=== PATIENT | male | born 1935 | race Caucasian/White ===

== ENCOUNTER 2024-05-01 20:28 | Inpatient (IN) ==
--- NOTE | 2024-05-01 20:42 | Emergency Department Note ---
Impression & Plan Aggressive behavior, HUGH (acute kidney injury), Elevated troponin I level ED Provider Note NAME: FAISAL BISHOP AGE: 88 SEX: M : 1935 ARRIVES VIA: Ambulance INFORMANT: Patient, EMS ED PROVIDER(S): John Madrid DO CHIEF COMPLAINT: Aggressive behavior HPI: The patient is an 88-year-old male who presented to the emergency department for an evaluation of aggressive behavior. The patient's been arguing with his significant other over the last several days. There is no reported fever or trauma. The patient was sent to emergency department by the significant other ROS: See above HPI for pertinent positives & negatives. A total of 10 systems reviewed and were otherwise negative. PAST MEDICAL HISTORY: See Below PAST SURGICAL HISTORY: See Below FAMILY HISTORY: See Below SOCIAL HISTORY: See Below HOME MEDICATIONS: See Below ALLERGIES: See Below VITALS: See Below PHYSICAL EXAMINATION: GENERAL: Patient is awake alert in no acute distress patient is resting comfortably and showing no signs of anxiety EYES: The conjunctivae are clear. The pupils are round and reactive. EARS, NOSE, MOUTH AND THROAT: The nose is without any evidence of any deformity. NECK: The neck is nontender and supple. RESPIRATORY: Normal respiratory effort is noted there is no evidence of wheezing rhonchi or rales CARDIOVASCULAR: Regular rate and rhythm noted there no murmurs rubs or gallops normal S1 normal S2. GASTROINTESTINAL: The abdomen is soft. Abdomen is nontender. MUSCULOSKELETAL/EXTREMITIES: There is no evidence of gross deformity full range of motion is noted in the hips and shoulders. SKIN: There is no obvious evidence of any rash. There are no petechiae, pallor or cyanosis noted. NEUROLOGIC: Patient is awake and oriented to person only. Strength was symmetric. There is no facial droop. Speech was clear. MEDICAL DECISION MAKING: The patient is an 88-year-old male who presented to the emergency department for an evaluation. The patient has a history of dementia. He has been having problems with aggressive behavior towards his significant other at home. His significant other was unable to manage his behavior this evening and she called 911. The patient had a medical workup in the emergency department. He was found have a slight elevation in his creatinine as well as his troponin. I discussed his condition with the on-call [facility] hospitalist. He may require further inpatient management followed by evaluation by professor of social work for possible placement. Triage Nursing notes reviewed. Prior medical records reviewed Vital Signs: reviewed and remarkable for no significant abnormalities Differential diagnosis: Infection, hypoglycemia, electrolyte abnormalities, overdose, toxicologic, cardiac sources, intracerebral event, neurologic, trauma, as well as other pathologies. ER treatment provided: See below Diagnostics interpreted by me: ECG: EKG was obtained in the emergency department. My interpretation is sinus rhythm at 87 bpm. PACs were noted. Left bundle branch block pattern was noted. No previous tracing was available. Cardiac Monitoring: An order was placed for continuous cardiac monitoring. The monitor shows a rate of 80 bpm with sinus rhythm. Laboratory studies: As stated above and show below. Imaging studies: See below. Radiographic imaging was reviewed by myself Consultation(s): Dr. Tavera who is on for the [facility] hospitalist group was notified about the patient. Past Med/Surg History Problem List (Updated 05/01/24 @ 21:59 by John Madrid DO) Elevated troponin I level (Acute) HUGH (acute kidney injury) (Acute) Aggressive behavior (Acute) Heart failure with reduced ejection fraction Constipation Elevated blood sugar Ambulatory dysfunction Atrial fibrillation Hearing difficulty of both ears Anxiety Macular degeneration Dyslipidemia Hypertension Dementia Skin lesion of cheek Medical History History of prostate cancer History of skin cancer Abdominal aortic aneurysm Surgical History History of prostate surgery Family History Father Alcohol abuse Alzheimer disease Brother Alcohol abuse Heart disease Hypertension Alzheimer disease Sister Anxiety Alzheimer disease Denies family history of Ovarian cancer Prostate cancer Myocardial infarction Breast cancer Colorectal cancer Social History Smoking Status: Never smoker packs per day: 0.5; Second Hand Exposure: No; Do You Dip or Chew Tobacco: No; Hx Alcohol Use: No Hx Substance Use: No Visual Impairment: No Limitations Hearing Ability: Hard of Hearing marital status: Current Living Situation: Spouse current occupational status: retired current occupation: Dentist Diet: regular caffeine: Yes during the past year weight has: remained stable Dental Care, Regularly: Yes Physical Activity Frequency: 5-6 Times per Week Seatbelt Use: always Sunscreen Use: No Allergies Allergies Allergy/AdvReac Type Severity Reaction Status Date / Time morphine Allergy Unknown Verified 04/22/24 11:28 Home Meds Home Medications Medication Instructions Recorded Confirmed amlodipine 5 mg tablet 5 mg PO 11/19/23 04/22/24 aspirin 81 mg chewable tablet 81 mg PO DAILY 11/19/23 04/22/24 atorvastatin 40 mg tablet 40 mg PO 11/19/23 04/22/24 donepezil 10 mg tablet 10 mg PO 11/19/23 04/22/24 melatonin 5 mg capsule 5 mg PO 11/19/23 04/22/24 multivit,Ca,min-iron 8 mg-folic tab PO 11/19/23 04/22/24 acid 200 mcg-lycopene 600 mcg tablet (Centrum Men) zinc PO 11/19/23 04/22/24 Previous Rx's Medication Instructions Recorded metoprolol succinate 25 mg 12.5 mg (1/2 x 25 mg) PO DAILY #30 12/20/23 tablet,extended release 24 hr tabs miscellaneous medical supply #1 ea 12/20/23 olanzapine 2.5 mg tablet 2.5 mg PO DAILY #30 tabs 04/22/24 Results & Data (ED) Vital Signs Vital Signs - 24 hr 05/01/24 20:38 05/01/24 20:38 05/01/24 20:41 Temperature 36.3 C L Temperature Source Oral Pulse Rate 85 84 Pulse Rate [Apical] Respiratory Rate 18 Blood Pressure 135/72 Blood Pressure [Right Arm] Blood Pressure Mean 93 Blood Pressure Mean [Right Arm] Pulse Oximetry 95 Oxygen Delivery Method Room Air Room Air Sepsis Recent Fever Within 48 Hours No Sepsis New/Unexplained Change in Mental Status No Sepsis Action Taken by Nursing No Action Required 05/01/24 23:11 Temperature Temperature Source Pulse Rate Pulse Rate [Apical] 80 Respiratory Rate 18 Blood Pressure Blood Pressure [Right Arm] 119/100 Blood Pressure Mean Blood Pressure Mean [Right Arm] 106 Pulse Oximetry Oxygen Delivery Method Sepsis Recent Fever Within 48 Hours Sepsis New/Unexplained Change in Mental Status Sepsis Action Taken by Long Term Medications Current Medication List: was personally reviewed by me Laboratory Data Attestation: I reviewed the patient's lab results. 05/01/24 20:52 05/01/24 20:52 Lab Results 05/01/24 Range/Units 20:52 WBC 7.27 (4.8-10.8) K/ul RBC 4.67 L (4.70-6.10) M/uL Hgb 13.7 L (14.0-18.0) g/dl Hct 41.3 L (42.0-52.0) % MCV 88.4 (80.0-100.0) fL MCH 29.3 (25.0-34.0) pg MCHC 33.2 (32.0-36.0) g/dL RDW Std Deviation 45.8 (36.4-46.3) fL RDW Coeff of Tony 14.4 (11.5-14.5) % Plt Count 227 (130-400) K/uL MPV 10.1 (9.4-12.4) fL Immature Gran % (Auto) 0.3 % Neut % (Auto) 60.7 % Lymph % (Auto) 22.1 % [place] % (Auto) 10.3 % Eos % (Auto) 5.5 % Baso % (Auto) 1.1 % Neut # (Auto) 4.41 (1.40-6.50) K/uL Lymph # (Auto) 1.61 (1.20-3.40) K/uL [place] # (Auto) 0.75 H (0.11-0.59) K/uL Eos # (Auto) 0.40 (0.00-0.50) K/uL Baso # (Auto) 0.08 (0.00-0.20) K/uL Immature Gran # (Auto) 0.02 (0.01-0.20) K/uL PT 10.7 (9.0-12.0) Seconds INR 1.0 (0.9-1.1) APTT 27 (21-31) Seconds PTT Ratio 1.0 Sodium 141 (136-145) mmol/L Potassium 4.2 (3.5-5.1) mmol/L Chloride 104 (98-107) mmol/L Carbon Dioxide 31 (21-32) mmol/L Anion Gap 6 (3-11) BUN 30 H (6-23) mg/dl Creatinine 1.41 H (0.6-1.4) mg/dl Est Cr Clr Drug Dosing 34.1 ml/min eGFR 48.23 BUN/Creatinine Ratio 21.3 H (10-20) Glucose 144 H (70-99(Fasting)) mg/dl Calcium 9.5 (8.6-10.3) mg/dl Total Bilirubin 0.4 (0.2-1.0) mg/dl AST 24 (13-39) U/L ALT 14 (7-52) U/L Alkaline Phosphatase 94 (34-104) U/L Troponin I High Sens 37.5 H (0-20) pg/ml Total Protein 7.1 (6.0-8.3) gm/dl Albumin 3.6 (3.4-5.0) gm/dl Globulin 3.5 (2.5-4.0) gm/dl Albumin/Globulin Ratio 1.0 (0.9-2) Lipase 58 (11-82) U/L TSH 5.269 H (0.300-4.500) uIu/ml Administered Medications Discontinued Medications Doxepin HCl (Doxepin Hcl 10 Mg Capsule) 10 mg PO ONE ONE Stop: 05/01/24 22:23 Last Admin: 05/01/24 22:35 Dose: 10 mg Documented By: MNAJINDER Sodium Chloride (Nss) 500 mls @ 999 mls/hr IV .Q31M ONE Stop: 05/01/24 22:28 Last Admin: 05/01/24 22:37 Dose: 999 mls/hr Documented By: MANJINDER Melatonin (Melatonin 3 Mg Tab) 6 mg PO ONE ONE Stop: 05/01/24 22:24 Last Admin: 05/01/24 22:35 Dose: 6 mg Documented By: MANJINDER Olanzapine (Olanzapine 2.5 Mg Tab) 2.5 mg PO ONE ONE Stop: 05/01/24 22:23 Last Admin: 05/01/24 22:36 Dose: 2.5 mg Documented By: MANJINDER Imaging Data Attestation: I personally reviewed and interpreted this imaging study as follows: My Impression: 1 view chest x-ray was obtained in the emergency department. My interpretation is no free air or definite infiltrate, final report below. CT of the brain was obtained in the emergency department. My interpretation is no intracranial hemorrhage or mass effect, final report below. Radiologist's Impression: Chest X-Ray 05/01/24 20:38 Exam(s): XR CXR 1 VIEW EXAM: XR Chest, 1 View CLINICAL HISTORY: Reason for exam: Chest pain, nonspecific. TECHNIQUE: Frontal view of the chest. COMPARISON: July 02, 2014 FINDINGS: Lungs: Scattered linear scarring in both lung bases, greater on the right than the left, similar to previous. No new infiltrate identified. Pleural space: Unremarkable. No pneumothorax. Heart: The cardiac silhouette is borderline enlarged. Mediastinum: Unremarkable. Normal mediastinal contour. Bones/joints: Mild degenerative changes of both shoulders. No acute fracture. Vasculature: The aortic arch is mildly calcified. Upper abdomen: Unremarkable as visualized. No pneumoperitoneum under the diaphragm. IMPRESSION: Scattered linear scarring in both lung bases, greater on the right than the left, similar to previous. No new infiltrate identified. Electronically signed by: Simba Palacios MD 05/01/24 21:[address] 05/01/24 20:38 Exam(s): CT HEAD Without Contrast EXAM: CT Head Without Intravenous Contrast CLINICAL HISTORY: Reason for exam: ams. TECHNIQUE: Axial computed tomography images of the head/brain without intravenous contrast. CTDI is 63.46 mGy and DLP is 1100.35 mGy-cm. Automated exposure control was utilized for the study. A dose lowering technique was utilized adhering to the principles of ALARA. COMPARISON: MRI brain from March 03, 2010 FINDINGS: Brain: Mild cerebral atrophy and periventricular white matter low density consistent with chronic small vessel disease and/or senescent changes, increased compared to previous. No acute large vessel infarct or intracranial hemorrhage is seen. Ventricles: Mildly dilated. No mass or hemorrhage. Bones/joints: Unremarkable. No acute fracture. Soft tissues: Unremarkable. Sinuses: Unremarkable as visualized. No acute sinusitis. Mastoid air cells: Unremarkable as visualized. No mastoid effusion. IMPRESSION: Mild cerebral atrophy and periventricular white matter low density consistent with chronic small vessel disease and/or senescent changes, increased compared to previous. No acute large vessel infarct or intracranial hemorrhage is seen. Electronically signed by: Simba Palacios MD 05/01/24 21:35 PM Discharge Plan Visit Data Chief Complaint: Confusion Stated Complaint: CONFUSION ED Provider: John Madrid Discharge Problem: Aggressive behavior, HUGH (acute kidney injury), Elevated troponin I level Patient Disposition: Being Evaluated by Hospitalist Forms Stand Alone Forms: [employer] Prescriptions Prescriptions: No Action olanzapine 2.5 mg tablet 2.5 mg PO DAILY Qty: 30 2RF (DME) miscellaneous medical supply Misc See Rx Instructions .Route Qty: 1 0RF Rx Instructions: Please provide 1 gait belt metoprolol succinate 25 mg tablet extended release 24 hr 12.5 mg PO DAILY Qty: 30 2RF donepezil 10 mg tablet 10 mg PO atorvastatin 40 mg tablet 40 mg PO amlodipine 5 mg tablet 5 mg PO aspirin 81 mg tablet,chewable 81 mg PO DAILY zinc PO Centrum Men 8 mg iron- 200 mcg-600 mcg tablet PO melatonin 5 mg capsule 5 mg PO Referrals Referrals: Chris Álvarez DO [Primary Care Provider] -
[2024-05-01 21:26] LABS: Basophils # (auto) 0.08 K/uL (0.00-0.20); Basophils % (auto) 1.1 %; Eosinophils % (auto) 5.5 %; Hematocrit (blood only) 41.3 % (42.0-52.0); Hemoglobin 13.7 g/dl (14.0-18.0); Immature Granulocytes # (auto) 0.02 K/uL (0.01-0.20); Immature Granulocytes % (auto) 0.3 %; Lymphocytes # (auto) 1.61 K/uL (1.20-3.40); Lymphocytes % (auto) 22.1 %; Mean Corpuscular Hemoglobin 29.3 pg (25.0-34.0); Mean Corpuscular Hgb Conc 33.2 g/dL (32.0-36.0); Mean Corpuscular Volume 88.4 fL (80.0-100.0); Mean Platelet Volume 10.1 fL (9.4-12.4); Monocytes # (auto) 0.75 K/uL (0.11-0.59); Monocytes % (auto) 10.3 %; Neutrophils # (auto) 4.41 K/uL (1.40-6.50); Neutrophils % (auto) 60.7 %; Platelet Count 227 K/uL (130-400); RDW Coefficient of Variation 14.4 % (11.5-14.5); RDW Standard Deviation 45.8 fL (36.4-46.3); Red Blood Count 4.67 M/uL (4.70-6.10); White Blood Count 7.27 K/ul (4.8-10.8)
[2024-05-01 21:28] LABS: Albumin Level 3.6 gm/dl (3.4-5.0); BUN Creatinine Ratio 21.3 (10-20); Bilirubin,Total 0.4 mg/dl (0.2-1.0); Calcium 9.5 mg/dl (8.6-10.3); Creatinine Clr Calc Pharmacy 34.1 ml/min; Globulin 3.5 gm/dl (2.5-4.0); Potassium 4.2 mmol/L (3.5-5.1); Total Protein 7.1 gm/dl (6.0-8.3)
[2024-05-01 21:34] LABS: Troponin I High Sensitivity 37.5 pg/ml (0-20)
--- NOTE | 2024-05-01 21:37 | XRay Report ---
Exam(s): XR CXR 1 VIEW EXAM: XR Chest, 1 View CLINICAL HISTORY: Reason for exam: Chest pain, nonspecific. TECHNIQUE: Frontal view of the chest. COMPARISON: July 02, 2014 FINDINGS: Lungs: Scattered linear scarring in both lung bases, greater on the right than the left, similar to previous. No new infiltrate identified. Pleural space: Unremarkable. No pneumothorax. Heart: The cardiac silhouette is borderline enlarged. Mediastinum: Unremarkable. Normal mediastinal contour. Bones/joints: Mild degenerative changes of both shoulders. No acute fracture. Vasculature: The aortic arch is mildly calcified. Upper abdomen: Unremarkable as visualized. No pneumoperitoneum under the diaphragm. IMPRESSION: Scattered linear scarring in both lung bases, greater on the right than the left, similar to previous. No new infiltrate identified. Electronically signed by: Simba Palacios MD 05/01/24 21:36 PM
--- NOTE | 2024-05-01 21:37 | CT Scan Report ---
Exam(s): CT HEAD Without Contrast EXAM: CT Head Without Intravenous Contrast CLINICAL HISTORY: Reason for exam: ams. TECHNIQUE: Axial computed tomography images of the head/brain without intravenous contrast. CTDI is 63.46 mGy and DLP is 1100.35 mGy-cm. Automated exposure control was utilized for the study. A dose lowering technique was utilized adhering to the principles of ALARA. COMPARISON: MRI brain from March 03, 2010 FINDINGS: Brain: Mild cerebral atrophy and periventricular white matter low density consistent with chronic small vessel disease and/or senescent changes, increased compared to previous. No acute large vessel infarct or intracranial hemorrhage is seen. Ventricles: Mildly dilated. No mass or hemorrhage. Bones/joints: Unremarkable. No acute fracture. Soft tissues: Unremarkable. Sinuses: Unremarkable as visualized. No acute sinusitis. Mastoid air cells: Unremarkable as visualized. No mastoid effusion. IMPRESSION: Mild cerebral atrophy and periventricular white matter low density consistent with chronic small vessel disease and/or senescent changes, increased compared to previous. No acute large vessel infarct or intracranial hemorrhage is seen. Electronically signed by: Simba Palacios MD 05/01/24 21:35 PM
[2024-05-01 21:52] LABS: Partial Thromboplastin Time 27 Seconds (21-31); Prothrombin Time 10.7 Seconds (9.0-12.0)
[2024-05-01] MEDS: MELATONIN 3 MG TAB PO ONE (22:35)
[2024-05-01] MEDS: DOXEPIN HCL 10 MG CAPSULE PO ONE (22:35)
[2024-05-01] MEDS: OLANZAPINE 2.5 MG TAB PO ONE (22:36)
[2024-05-01] MEDS: SODIUM CHLORIDE 0.9% 500 ML IV ONE (22:37)
--- NOTE | 2024-05-01 22:41 | History & Physical Report ---
Date of Service May 01, 2024 Assessment & Plan (1) Aggressive behavior: Plan: Likely progressive dementia leading to sundowning and aggression. Continue olanzapine 2.5 mg BID, doxepin 10 mg HS, and melatonin. Patient likely needs placement at a [facility] care facility. TSH with reflex T4 ordered Appreciate CM input (2) HUGH (acute kidney injury): Plan: HUGH and elevated troponin likely in the setting of mild dehydration. Trend. 500 mL NSS bolus trend trops (3) Dementia: (4) Elevated troponin I level: (5) Hearing difficulty of both ears: Plan Code status: full DVT ppx: SCDs FENGI: regular diet, s/p 500 mL NSS bolus Dispo: [place], anticipate discharge needs LTC History of Present Illness Chief Complaint: confusion Primary Care Provider: Chris Álvarez, DO 88 y/o with baseline dementia and history of sundowning/agitation brought in by EMS after hitting his with a cane. Patient denies CP, SOB, abdominal pain, fevers, or calf pain. Patient hard of hearing, which limits the usefulness of the interview. Patient reports that someone took his breasts earlier today and he is looking for them. He also asked some inappropriate questions regarding breasts during the interview. CT Head without acute process. Labs largely unremarkable - slightly elevated Cr and Trop. Given 500 mL fluid bolus. Per chart review, family has been considering transitioning to a residential care facility and Paulie has become more difficult to take care of with his agitation/sundowning. Allergies Allergy/AdvReac Type Severity Reaction Status Date / Time morphine Allergy Unknown Verified 04/22/24 11:28 Home Medications Medication Instructions Recorded Confirmed Type amlodipine 5 mg tablet 5 mg PO 11/19/23 04/22/24 History aspirin 81 mg chewable tablet 81 mg PO DAILY 11/19/23 04/22/24 History atorvastatin 40 mg tablet 40 mg PO 11/19/23 04/22/24 History donepezil 10 mg tablet 10 mg PO 11/19/23 04/22/24 History melatonin 5 mg capsule 5 mg PO 11/19/23 04/22/24 History multivit,Ca,min-iron 8 mg-folic tab PO 11/19/23 04/22/24 History acid 200 mcg-lycopene 600 mcg tablet (Centrum Men) zinc PO 11/19/23 04/22/24 History metoprolol succinate 25 mg 12.5 mg (1/2 x 25 mg) PO DAILY #30 12/20/23 04/22/24 Rx tablet,extended release 24 hr tabs miscellaneous medical supply #1 ea 12/20/23 04/22/24 Rx olanzapine 2.5 mg tablet 2.5 mg PO DAILY #30 tabs 04/22/24 04/22/24 Rx Past Med/Surg History Problem List (Updated 05/01/24 @ 21:59 by John Madrid DO) Elevated troponin I level (Acute) HUGH (acute kidney injury) (Acute) Aggressive behavior (Acute) Heart failure with reduced ejection fraction Constipation Elevated blood sugar Ambulatory dysfunction Atrial fibrillation Hearing difficulty of both ears Anxiety Macular degeneration Dyslipidemia Hypertension Dementia Skin lesion of cheek Medical History History of prostate cancer History of skin cancer Abdominal aortic aneurysm Surgical History History of prostate surgery Family History Father Alcohol abuse Alzheimer disease Brother Alcohol abuse Heart disease Hypertension Alzheimer disease Sister Anxiety Alzheimer disease Denies family history of Ovarian cancer Prostate cancer Myocardial infarction Breast cancer Colorectal cancer Social History Smoking Status: Never smoker packs per day: 0.5; Second Hand Exposure: No; Do You Dip or Chew Tobacco: No; Hx Alcohol Use: No Hx Substance Use: No Visual Impairment: No Limitations Hearing Ability: Hard of Hearing marital status: Current Living Situation: Spouse current occupational status: retired current occupation: Dentist Diet: regular caffeine: Yes during the past year weight has: remained stable Dental Care, Regularly: Yes Physical Activity Frequency: 5-6 Times per Week Seatbelt Use: always Sunscreen Use: No Review of Systems 2 Review of Systems: See HPI Physical Exam 2 Physical Exam: Gen: elderly appearing male, NAD, hard of hearing HEENT: AT NC MMM Resp: CTAB no wheezing no increased work of breathing CV: RRR no m/r/g clinically well perfused, no lower extremity edema Abd: soft, non-tender, non-distended MSK: no obvious deformities Skin: no rashes or bruising Neuro: alert and oriented Psych: appropriate mood and affect Results & Data Results & Data Vital Signs (Past 12 Hours) Vital Signs Temp Pulse Resp BP Pulse Ox O2 Del Method 05/01/24 20:41 84 05/01/24 20:38 Room Air 05/01/24 20:38 36.3 C L 85 18 135/72 95 Room Air Laboratory Results 05/01/24 20:52 05/01/24 20:52 Diagnostic Findings Chest X-Ray 05/01/24 20:38 FINDINGS: Lungs: Scattered linear scarring in both lung bases, greater on the right than the left, similar to previous. No new infiltrate identified. Pleural space: Unremarkable. No pneumothorax. Heart: The cardiac silhouette is borderline enlarged. Mediastinum: Unremarkable. Normal mediastinal contour. Bones/joints: Mild degenerative changes of both shoulders. No acute fracture. Vasculature: The aortic arch is mildly calcified. Upper abdomen: Unremarkable as visualized. No pneumoperitoneum under the diaphragm. IMPRESSION: Scattered linear scarring in both lung bases, greater on the right than the left, similar to previous. No new infiltrate identified. Head CT 05/01/24 20:38 FINDINGS: Brain: Mild cerebral atrophy and periventricular white matter low density consistent with chronic small vessel disease and/or senescent changes, increased compared to previous. No acute large vessel infarct or intracranial hemorrhage is seen. Ventricles: Mildly dilated. No mass or hemorrhage. Bones/joints: Unremarkable. No acute fracture. Soft tissues: Unremarkable. Sinuses: Unremarkable as visualized. No acute sinusitis. Mastoid air cells: Unremarkable as visualized. No mastoid effusion. IMPRESSION: Mild cerebral atrophy and periventricular white matter low density consistent with chronic small vessel disease and/or senescent changes, increased compared to previous. No acute large vessel infarct or intracranial hemorrhage is seen. Code Status & VTE Plan VTE Prophylaxis Plan VTE Prophylaxis will be ordered: Yes Supervising Physician Co-Signing Physician Notes Attending addendum: I have physically seen this patient, have supervised the medical residents activities, and agree with the H&P unless as otherwise noted. Assessment and Plan: The patient is a 88-year-old male resident of [facility], who is brought to the emergency department due to history of sundowning/agitation, and reportedly was attempting to hit his with a cane earlier today today. He has been seen in the outpatient setting by his PCP, who attempted Ativan initially without improvement. He was then trialed on Zyprexa 2.5 mg orally, with option to increase to 5 mg daily as needed. Consideration was to be made that patient may need to be moved to the nursing facility section of [facility] if symptoms worsened. [facility] and treatment. #Dementia with worsening aggressive behavior- Symptoms do not appear to be associated with an infection component. Olanzapine 2.5 mg p.o. twice daily, doxepin 10 mg p.o. at bedtime and melatonin 3 mg at bedtime as needed May consider psychiatric consult if symptoms do not significantly proved Renal insufficiency- Creatinine 1.41, with base 1.23 Mildly dehydrated, which should have improved with 500 mL normal saline bolus Repeat laboratories in the a.m. Not likely causative of his symptoms Chronic medical conditions: Hypertension- Continue amlodipine, aspirin, metoprolol succinate Hyperlipidemia-continue atorvastatin Disposition- Consideration, depending upon the extent that his thinks she can care for him, should be considered to need to be moved to next level of care at [facility] Resident Activity Tracking Resident Involvement: Resident Care Provided Care Provided: Adult Hospital Medicine (3) Dementia Dementia behavioral or psychological symptom: with other behavioral disturbance Dementia severity: moderate Dementia type: unspecified type Qualified Code(s): F03.B18 - Unspecified dementia, moderate, with other behavioral disturbance
[2024-05-01 23:24] LABS: Thyroid Stimulating Hormone 5.269 uIu/ml (0.300-4.500)
[2024-05-02] LABS: T4 Free Thyroxine 0.79 ng/dl (0.61-1.60)
--- NOTE | 2024-05-02 01:17 | Billing Data ---
Date of Service May 02, 2024 Coding Level of Care Code 05967 INT INP/OBS CARE
[2024-05-02] MEDS ORDERED: MAGNESIUM HYDROXIDE SUSP 30 ML UDC PO PRN (01:40)
[2024-05-02] MEDS ORDERED: MELATONIN 3 MG TAB PO PRN ×2 (01:40→02:10)
[2024-05-02] MEDS ORDERED: POLYETHYLENE (MIRALAX) 17 GM PACK PO PRN (01:40)
[2024-05-02] MEDS ORDERED: ALUMINUM/MAGNESIUM SUSP 30 ML UDC PO PRN (01:40)
[2024-05-02] MEDS: MELATONIN 3 MG TAB PO ONE (02:24)
[2024-05-02] MEDS: OLANZapine 10 MG/2.1 ML SDV IM STA (02:25)
[2024-05-02] MEDS: OLANZapine 10 MG/2.1 ML SDV IM ONE (02:29)
[2024-05-02 08:00] LABS: Hemoglobin 12.6 g/dl (14.0-18.0); Mean Corpuscular Hemoglobin 28.8 pg (25.0-34.0); Mean Corpuscular Hgb Conc 32.3 g/dL (32.0-36.0); Mean Platelet Volume 9.8 fL (9.4-12.4); Platelet Count 196 K/uL (130-400); RDW Coefficient of Variation 14.2 % (11.5-14.5); Red Blood Count 4.38 M/uL (4.70-6.10); White Blood Count 7.05 K/ul (4.8-10.8)
[2024-05-02 08:16] LABS: BUN Creatinine Ratio 18.3 (10-20); Creatinine Clr Calc Pharmacy 36.5 ml/min; Potassium 3.7 mmol/L (3.5-5.1)
[2024-05-02 08:22] LABS: Troponin I High Sensitivity 46.1 pg/ml (0-20)
[2024-05-02] MEDS: METOPROLOL SUCC 25MG EXT REL TAB PO SCH (10:37)
[2024-05-02] MEDS: ATORVASTATIN 40 MG TAB PO SCH (10:38)
[2024-05-02] MEDS: OLANZAPINE 2.5 MG TAB PO SCH (10:38)
[2024-05-02] MEDS: amLODIPine BESYLATE 5 MG TAB PO SCH (10:38)
[2024-05-02] MEDS: ASPIRIN 81 MG CHEW PO SCH (10:38)
--- NOTE | 2024-05-02 12:19 | Hospitalist Progress Note ---
Date of Service May 02, 2024 Assessment & Plan (1) Aggressive behavior: (2) Dementia: (3) HUGH (acute kidney injury): (4) Elevated troponin I level: (5) Hearing difficulty of both ears: Plan The patient is a 88-year-old male resident of [facility], who presents due to history of sundowning/agitation, and reportedly was attempting to hit his with a cane. Has seen PCP for this, who attempted Ativan initially without improvement, then trialed on Zyprexa 2.5 mg orally. Patient likely not safe in his current living environment and admitted for possible transition to the SNF portion of [facility]. No acute metabolic/infectious cause of worsening behavior (CBC/BMP/TSH/Head CT/CXR) #Dementia with aggressive behavior Symptoms do not appear to be associated with an infection/metabolic component. Still awaiting UA collection Scheduled zyprexa 2.5mg PO AM, 5mg PO HS. - QTC 498, plan to repeat EKG within in the next few days to make sure not prolonging Continue doxepin. Scheduled melatonin, with additional prn. Promote good sleep/wake cycles CM following #HUGH Creatinine on admission 1.41, with base 1.23. Cr improved with IVFs #Elevated troponin Mild, denies chest pain. EKG without ST elevation. Trend to peak Hypertension- Continue amlodipine, aspirin, metoprolol succinate Hyperlipidemia-continue atorvastatin DVT ppx: lovenox Dispo: continued inpatient stay daughter and updated at bedside 05/02, daughter/POA Yelitza updated by phone 05/02 Admission and Anticipated Discharge Date Admission Date: May 01, 2024 Subjective patient seen lying in bed, offers no acute complaints was awake when i entered the room and agreeable to watch sports on the TV, but RN reports he was sleeping for most of the morning only oriented to self Review of Systems Review of Systems: All systems reviewed & are unremarkable except as noted in Subjective Physical Exam Physical Exam: General: NAD, VS as above Resp: normal respiratory effort, lungs clear to auscultation CV: RRR, no murmur, Abd: normal bowel sounds, non tender, soft Extremities: Moves all extremities, no edema Neuro: A&O x1, Results & Data Results & Data Vital Signs (Past 12 Hours) Vital Signs Temp Pulse Pulse Pulse Resp BP BP 05/02/24 07:27 97.3 F L 80 16 136/71 05/02/24 02:30 05/02/24 02:30 97.7 F 81 18 05/02/24 01:09 77 18 112/76 05/02/24 00:42 78 BP Pulse Ox O2 Del Method 05/02/24 07:27 95 Room Air 05/02/24 02:30 Room Air 05/02/24 02:30 170/106 H 96 Room Air 05/02/24 01:09 96 Room Air 05/02/24 00:42 Laboratory Results CBC and chemistry reviewed Troponin reviewed PG Care Time/CCT Total # of Minutes Spent Total Time Spent with Patient: Total time spent is greater than 50% in coordination of care (as documented) at patient's floor/unit and/or counseling patient: Coding Level of Care Code 07912 SUB INP/OBS CARE 2/35MIN Diagnoses Aggressive behavior R46.89 Moderate dementia with other behavioral disturbance, unspecified dementia type F03.B18 Dementia behavioral or psychological symptom: with other behavioral disturbance Dementia severity: moderate Dementia type: unspecified type HUGH (acute kidney injury) N17.9 Elevated troponin I level R79.89 Hearing difficulty of both ears H91.93 (2) Dementia Dementia behavioral or psychological symptom: with other behavioral disturbance Dementia severity: moderate Dementia type: unspecified type Qualified Code(s): F03.B18 - Unspecified dementia, moderate, with other behavioral disturbance
[2024-05-02 19:45] LABS: Appearance Urine Clear (Clear); Bilirubin Urine Negative (Negative); Blood Urine Negative (Negative); Color Urine Yellow; Glucose Urine UA Negative (Negative); Ketones Urine Negative (Negative); Leukocyte Esterase Urine Negative (Negative); Nitrite Urine Negative (Negative); Protein Urine Negative (Negative); Specific Gravity Urine 1.011 (1.000-1.030); Urobilinogen Urine Negative (Negative)
--- NOTE | 2024-05-02 21:30 | Electrocardiogram Report ---
Test Reason : Blood Pressure : */* mmHG Vent. Rate : 87 BPM Atrial Rate : 98 BPM P-R Int : 148 ms QRS Dur : 130 ms QT Int : 414 ms P-R-T Axes : 75 -36 135 degrees QTcB Int : 498 ms Sinus rhythm with occasional Premature ventricular complexes and Premature atrial complexes Left axis deviation Left bundle branch block Abnormal ECG No previous ECGs available Confirmed by Kev Gomez ([id number]) on 05/02/2024 9:30:17 PM Referred By: REFERRED SELF Confirmed By: Kev Gomez
[2024-05-02] MEDS: DONEPEZIL HCL 10 MG TAB PO SCH (21:35)
[2024-05-02] MEDS: MELATONIN 3 MG TAB PO SCH (21:35)
[2024-05-02] MEDS: OLANZapine 5 MG TABLET PO SCH (21:56)
[2024-05-03] MEDS: ENOXAPARIN INJ 40 MG/0.4 ML SYR SQ SCH (07:21)
--- NOTE | 2024-05-03 15:37 | Hospitalist Progress Note ---
Date of Service May 03, 2024 Assessment & Plan (1) Aggressive behavior: (2) Dementia: (3) HUGH (acute kidney injury): (4) Elevated troponin I level: (5) Hearing difficulty of both ears: Plan The patient is a 88-year-old male resident of [facility], who presents due to history of sundowning/agitation, and reportedly was attempting to hit his with a cane. Has seen PCP for this, who attempted Ativan initially without improvement, then trialed on Zyprexa 2.5 mg orally. Patient likely not safe in his current living environment and admitted for possible transition to the SNF portion of [facility]. No acute metabolic/infectious cause of worsening behavior (CBC/BMP/UA/TSH/Head CT/CXR) #Dementia with aggressive behavior Symptoms do not appear to be associated with an infection/metabolic component. Still awaiting UA collection Scheduled zyprexa 2.5mg PO AM, 5mg PO HS. Continue doxepin. Scheduled melatonin, with additional prn. Promote good sleep/wake cycles required restraints overnight, EKG to assess QTc, which has prolonged to 517. Will not increase dose of antipsychotic at this time, will add as needed p.o. Ativan as needed for agitation CM following #HUGH Creatinine on admission 1.41, with base 1.23. Cr improved with IVFs #Elevated troponin Mild, denies chest pain. EKG without ST elevation. increase today to 62.1, patient denies chest pain. EKG showing slightly prolonged QTc however no ST elevations. Recheck Trop with BMP, CK and mag tomorrow Hypertension- Continue amlodipine, aspirin, metoprolol succinate Hyperlipidemia-continue atorvastatin DVT ppx: lovenox Dispo: continued inpatient stay daughter and updated at bedside 05/02, daughter/PORisa Torre updated by phone 05/02 Admission and Anticipated Discharge Date Admission Date: May 02, 2024 Subjective patient seen lying in bed with lunch tray in front of him. States that he is not hungry and only had a few bites. he was only oriented to himself. His only complaint is that he does not have a pillow under his head which I provided for him Review of Systems Review of Systems: All systems reviewed & are unremarkable except as noted in Subjective Physical Exam Physical Exam: General: NAD, vitals as above, sitting up in bed, calm and cooperative Pulm: breathing unlabored CV: well perfused extremities: moves all extremities, not currently in restraints Results & Data Results & Data Vital Signs (Past 12 Hours) Vital Signs Temp Pulse Pulse Resp BP Pulse Ox O2 Del Method 05/03/24 15:16 97.7 F 99 H 18 121/80 95 Room Air 05/03/24 07:05 Room Air 05/03/24 07:05 97.9 F 106 H 18 164/97 H 93 Room Air Laboratory Results troponin reviewed ua reviewed Diagnostic Findings EKG reviewe d PG Care Time/CCT Total # of Minutes Spent Total Time Spent with Patient: Total time spent is greater than 50% in coordination of care (as documented) at patient's floor/unit and/or counseling patient: Coding Level of Care Code 97599 SUB INP/OBS CARE 235MIN Diagnoses Aggressive behavior R46.89 Moderate dementia with other behavioral disturbance, unspecified dementia type F03.B18 Dementia type: unspecified type Dementia severity: moderate Dementia behavioral or psychological symptom: with other behavioral dist urbance HUGH (acute kidney injury) N17.9 Elevated troponin I level R79.89 Hearing difficulty of both ears H91.93 (2) Dementia Dementia type: unspecified type Dementia severity: moderate Dementia behavioral or psychological symptom: with other behavioral disturbance Qualified Code(s): F03.B18 - Unspecified dementia, moderate, with other behavioral disturbance
[2024-05-03] MEDS: LORazepam 0.5 MG TAB PO PRN (17:20)
[2024-05-04 07:13] LABS: BUN Creatinine Ratio 18.7 (10-20); Calcium 8.8 mg/dl (8.6-10.3); Creatinine Clr Calc Pharmacy 34.3 ml/min; Potassium 3.9 mmol/L (3.5-5.1)
[2024-05-04 07:21] LABS: Troponin I High Sensitivity 58.4 pg/ml (0-20)
--- NOTE | 2024-05-04 10:29 | Hospitalist Progress Note ---
Date of Service May 04, 2024 Assessment & Plan (1) Aggressive behavior: (2) Dementia: (3) HUGH (acute kidney injury): (4) Elevated troponin I level: (5) Hearing difficulty of both ears: Plan The patient is a 88-year-old male resident of [facility], who presents due to history of sundowning/agitation, and reportedly was attempting to hit his with a cane. Has seen PCP for this, who attempted Ativan initially without improvement, then trialed on Zyprexa 2.5 mg orally. Patient likely not safe in his current living environment and admitted for possible transition to the SNF portion of [facility]. No acute metabolic/infectious cause of worsening behavior (CBC/BMP/UA/TSH/Head CT/CXR) #Dementia with aggressive behavior Symptoms do not appear to be associated with an infection/metabolic component. Still awaiting UA collection Scheduled zyprexa 2.5mg PO AM, 5mg PO - will move up to 1900. Continue doxepin. Scheduled melatonin, with additional prn. Promote good sleep/wake cycles No long requiring restraints, EKG showing QTc 517. No additional zyprexa added, continue PRN PO ativan CM following #HUGH Creatinine on admission 1.41, with base 1.23. Cr improved with IVFs #Elevated troponin Mild, denies chest pain. EKG without ST elevation. Has peaked at 62 and down trending, mag replete. CK WNL Hypertension- Continue amlodipine, aspirin, metoprolol succinate Hyperlipidemia-continue atorvastatin DVT ppx: lovenox Dispo: continued inpatient stay daughter and updated at bedside 05/02, daughter/ISMAEL Torre updated by phone 05/02 & 05/04 Admission and Anticipated Discharge Date Admission Date: May 02, 2024 Supervising Physician Co-Signing Physician Notes Attending Attestation - Chart reviewed, care plan d/w JAMIE Campbell. I agree w/ the villaseñor components of her documentation. Gael Conner MD Subjective seen resting in bed, easily awakens to verbal stimuli. Offers no acute complaints. RN reports that he was getting alittle more agitated around 430p yesterday and received PO ativan and calmed down within 30-45 minutes. no issues overnight remains out of restraints. Review of Systems Review of Systems: All systems reviewed & are unremarkable except as noted in Subjective Physical Exam Physical Exam: General: NAD, vitals as above, lying in bed, plesant and cooperative Pulm: breathing unlabored CV: well perfused extremities: moves all extremities Results & Data Results & Data Vital Signs (Past 12 Hours) Vital Signs Temp Pulse Resp BP Pulse Ox O2 Del Method 05/04/24 08:01 97.5 F L 92 H 16 156/78 H 98 Room Air Laboratory Results chemistry, mag, ck and trop reviewed PG Care Time/CCT Total # of Minutes Spent Total Time Spent with Patient: Total time spent is greater than 50% in coordination of care (as documented) at patient's floor/unit and/or counseling patient: Coding Level of Care Code 49719 SUB INP/OBS CARE 235MIN Diagnoses Aggressive behavior R46.89 Moderate dementia with other behavioral disturbance, unspecified dementia type F03.B18 Dementia behavioral or psychological symptom: with other behavioral disturbance Dementia severity: moderate Dementia type: unspecified type HUGH (acute kidney injury) N17.9 Elevated troponin I level R79.89 Hearing difficulty of both ears H91.93 (2) Dementia Dementia behavioral or psychological symptom: with other behavioral disturb ance Dementia severity: moderate Dementia type: unspecified type Qualified Code(s): F03.B18 - Unspecified dementia, moderate, with other behavioral disturbance
--- NOTE | 2024-05-04 12:03 | Electrocardiogram Report ---
Test Reason : Blood Pressure : */* mmHG Vent. Rate : 96 BPM Atrial Rate : 96 BPM P-R Int : 206 ms QRS Dur : 132 ms QT Int : 410 ms P-R-T Axes : 0 -46 131 degrees QTcB Int : 517 ms Sinus rhythm with occasional Premature ventricular complexes and Premature atrial complexes Left axis deviation Left bundle branch block Abnormal ECG When compared with ECG of 01-May-2024 20:45, No significant change was found Confirmed by John Robin ([id number]) on 05/04/2024 12:03:22 PM Referred By: REFERRED SELF Confirmed By: John Robin
[2024-05-04] MEDS: OLANZapine 5 MG TABLET PO SCH (19:34)
[2024-05-04] MEDS: OLANZapine 5 MG TABLET PO STA (23:18)
[2024-05-05] MEDS: diphenhydrAMINE 50 MG/ML VIAL IV STA (03:53)
--- NOTE | 2024-05-05 11:50 | Hospitalist Progress Note ---
Date of Service May 05, 2024 Assessment & Plan (1) Aggressive behavior: (2) Dementia: (3) HUGH (acute kidney injury): (4) Elevated troponin I level: (5) Hearing difficulty of both ears: Plan The patient is a 88-year-old male resident of [facility], who presents due to history of sundowning/agitation, and reportedly was attempting to hit his with a cane. Has seen PCP for this, who attempted Ativan initially without improvement, then trialed on Zyprexa 2.5 mg orally. Patient likely not safe in his current living environment and admitted for possible transition to the SNF portion of [facility]. No acute metabolic/infectious cause of worsening behavior (CBC/BMP/UA/TSH/Head CT/CXR) #Dementia with aggressive behavior Symptoms do not appear to be associated with an infection/metabolic component. Still awaiting UA collection Scheduled zyprexa 2.5mg PO AM, 5mg PO - will move up to 1900. Continue doxepin. Scheduled melatonin, with additional prn. Promote good sleep/wake cycles No long requiring restraints, EKG showing QTc 517. No additional zyprexa added, continue PRN PO ativan CM following Required PO Zyprexa and IV Benadryl overnight, agitation was exacerbated by roommates agitation. Will move patient to a new room #HUGH Creatinine on admission 1.41, with base 1.23. Cr improved with IVFs #Elevated troponin Mild, denies chest pain. EKG without ST elevation. Has peaked at 62 and down trending, mag replete. CK WNL Hypertension- Continue amlodipine, aspirin, metoprolol succinate Hyperlipidemia-continue atorvastatin DVT ppx: lovenox Dispo: continued inpatient stay daughter and updated at bedside 05/02, daughter/ISMAEL Torre updated by phone 05/02 & 05/04 Admission and Anticipated Discharge Date Admission Date: May 02, 2024 Supervising Physician Co-Signing Physician Notes Attending Attestation - Chart reviewed, care plan d/w JAMIE Campbell. I agree w/ the villaseñor components of her documentation. Gael Conner MD Subjective Patient seen resting in bed, awakens to verbal stimuli. RN reports rough night - as his roommate was causing issues than then cause Paulie to get worked up and needing medication intervention Calm and cooperaitve during my interview no acute complaints Discussed with RN - will try to get up to the chair today Review of Systems Review of Systems: All systems reviewed & are unremarkable except as noted in Subjective Physical Exam Physical Exam: General: NAD, vitals as above, lying in bed, plesant and cooperative HEENT: MM dry Pulm: breathing unlabored CV: well perfused, RRR extremities: moves all extremities Results & Data Results & Data Vital Signs (Past 12 Hours) Vital Signs Temp Pulse Resp BP Pulse Ox O2 Del Method 05/05/24 10:24 Room Air 05/05/24 07:19 97.9 F 89 16 152/75 H 94 Room Air PG Care Time/CCT Total # of Minutes Spent Total Time Spent with Patient: Total time spent is greater than 50% in coordination of care (as documented) at patient's floor/unit and/or counseling patient: Coding Level of Care Code 86512 SUB INP/OBS CARE 03/15MIN Diagnoses Aggressive behavior R46.89 Moderate dementia with other behavioral disturbance, unspecified dementia type F03.B18 Dementia behavioral or psychological symptom: with other behavioral disturbance Dementia severity: moderate Dementia type: unspecified type HUGH (acute kidney injury) N17.9 Elevated troponin I level R79.89 Hearing difficulty of both ears H91.93 (2) Dementia Dementia behavioral or psychological symptom: with other behavioral disturbance Dementia severity: moderate Dementia type: unspecified type Qualified Code(s): F03.B18 - Unspecified dementia, moderate, with other behavioral disturbance
[2024-05-05] MEDS: ACETAMINOPHEN 325 MG TAB PO PRN (20:05)
--- NOTE | 2024-05-06 08:12 | Hospitalist Progress Note ---
Date of Service May 06, 2024 Assessment & Plan (1) Aggressive behavior: (2) Dementia: (3) HUGH (acute kidney injury): (4) Elevated troponin I level: (5) Hearing difficulty of both ears: Plan The patient is a 88-year-old male resident of [facility], who presents due to history of sundowning/agitation, and reportedly was attempting to hit his with a cane. Has seen PCP for this, who attempted Ativan initially without improvement, then trialed on Zyprexa 2.5 mg orally. Patient likely not safe in his current living environment and admitted for possible transition to the SNF portion of [facility]. No acute metabolic/infectious cause of worsening behavior (CBC/BMP/UA/TSH/Head CT/CXR) #Dementia with aggressive behavior - symptoms do not appear to be associated with an infection/metabolic component. UA does not appear infected Required PO zyprexa and Benadryl IV overnight 05/04-05/05 but appears agitation exacerbated by roommates agitation and improved since move to new room Zyprexa 2.5mg PO AM continued Zyprexa 5mg PO at 1900 daily -- new rx Repeat EKG w/ QTC improved from 517ms to 470ms and will monitor Continue doxepin, melatonin with additional prn Continue sleep/wake schedules NS @ 70cc/hr x 500cc ordered. PO hydration encouraged. 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 Does have mild and hx afib and remains on metoprolol once daily for rate control/afib. K/mag stable PT/OT consulted and plans for placement at dc. CM following and referrals in place #Cardiomyopathy recent EF 20-25%. Hx paroxysmal afib, not on anticoagulation given dementia/risk discussion in the past appears DRY on exam, IVF as above continues on metoprolol, ASA, statin. Not on MARLEEN/ARB but would avoid w/ renal function but could consider (apparently issues w/ hypotension in the past) Can check BNP w/ AM labs, daily weights/I&Os Monitor for urinary retention w/ antipsychotic use above #HUGH Cr 1.4 on admission with baseline ~1.2 UA did NOT appear infected, improved with IVF but checked BMP today and appeared DRY today and NS x 500cc above Monitor for urinary retention BMP in AM #Elevated troponin Mild, denies chest pain. EKG without ST elevation. Has peaked at 62 and down trending, mag replete. CK WNL Chronic stable issues: Hypertension- Continue amlodipine, aspirin, metoprolol succinate Monitor for MARLEEN over amlodipine with his EF above but stable at this time/will continue Hyperlipidemia-continue atorvastatin DVT ppx: lovenox SQ while inpatient Dispo: continued inpatient stay , updated family at bedside 05/06 (daughter ISMAEL Torre) Admission and Anticipated Discharge Date Admission Date: May 02, 2024 Supervising Physician Co-Signing Physician Notes The patient was not seen by me. The chart was reviewed. Case discussed with JAMIE Sam. Agree with assessment and plan Subjective Eval this morning, easily awoken to name. No acute distress No need for IM medication or additional meds last night. Does appear slightly dry, encourage PO but will order gentle IVF. Waiting placement. Questions/concerns addressed at this time. Physical Exam Physical Exam: General: 88yo male sitting up in bed resting, awoken to name, NAD HEENT : head atraumatic, lesion to left cheek, mm DRY Resp: even/unlabored, on room air, no cough CV: regular, +systolic murmur, no significant pitting edema/calf tenderness MSK/Neuro: moves all extremities, nonfocal Psych: alert to person, not place/time but cooperative with exam Results & Data Results & Data Vital Signs (Past 12 Hours) Vital Signs Temp Pulse Resp BP BP Pulse Ox O2 Del Method 05/06/24 07:26 36.4 C 78 20 127/62 94 Room Air 05/06/24 07:13 36.6 C 64 16 130/77 95 Room Air PG Care Time/CCT Total # of Minutes Spent Total Time Spent with Patient: Total time spent is greater than 50% in coordination of care (as documented) at patient's floor/unit and/or counseling patient: Coding Level of Care Code 45351 SUB INP/OBS CARE 3/50MIN Diagnoses Aggressive behavior R46.89 Moderate dementia with other behavioral disturbance, unspecified dementia type F03.B18 Dementia behavioral or psychological symptom: with other behavioral disturbance Dementia severity: moderate Dementia type: unspecified type HUGH (acute kidney injury) N17.9 Elevated troponin I level R79.89 Hearing difficulty of both ears H91.93 (2) Dementia Dementia behavioral or psychological symptom: with other behavioral disturbance Dementia severity: moderate Dementia type: unspecified type Qualified Code(s): F03.B18 - Unspecified dementia, moderate, with other behavioral disturbance
[2024-05-06 10:00] LABS: Hematocrit (blood only) 44.3 % (42.0-52.0); Hemoglobin 14.4 g/dl (14.0-18.0); Mean Corpuscular Hemoglobin 28.4 pg (25.0-34.0); Mean Corpuscular Hgb Conc 32.5 g/dL (32.0-36.0); Mean Corpuscular Volume 87.4 fL (80.0-100.0); Mean Platelet Volume 9.8 fL (9.4-12.4); Platelet Count 248 K/uL (130-400); RDW Coefficient of Variation 14.1 % (11.5-14.5); RDW Standard Deviation 44.8 fL (36.4-46.3); Red Blood Count 5.07 M/uL (4.70-6.10)
[2024-05-06 10:03] LABS: BUN Creatinine Ratio 22.1 (10-20); Calcium 9.1 mg/dl (8.6-10.3); Creatinine Clr Calc Pharmacy 32.9 ml/min; Potassium 4.3 mmol/L (3.5-5.1)
[2024-05-06] MEDS: SODIUM CHLORIDE 0.9% 500 ML IV SCH (12:05)
[2024-05-06] MEDS ORDERED: OLANZAPINE 2.5 MG TAB PO SCH (19:00)
[2024-05-06] MEDS: OLANZAPINE 2.5 MG TAB PO SCH (20:19)
[2024-05-06] MEDS ORDERED: TAMSULOSIN HCL 0.4 MG CAP PO SCH (21:00)
[2024-05-06] MEDS: MELATONIN 3 MG TAB PO PRN (22:36)
--- NOTE | 2024-05-07 08:15 | Hospitalist Progress Note ---
Date of Service May 07, 2024 Assessment & Plan (1) Aggressive behavior: (2) Dementia: (3) HUGH (acute kidney injury): (4) Elevated troponin I level: (5) Hearing difficulty of both ears: Plan The patient is a 88-year-old male resident of [facility], who presents due to history of sundowning/agitation, and reportedly was attempting to hit his with a cane. Has seen PCP for this, who attempted Ativan initially without improvement, then trialed on Zyprexa 2.5 mg orally. Patient likely not safe in his current living environment and admitted for possible transition to the SNF portion of [facility]. No acute metabolic/infectious cause of worsening behavior (CBC/BMP/UA/TSH/Head CT/CXR) #Dementia with aggressive behavior - symptoms do not appear to be associated with an infection/metabolic component. UA does not appear infected Required PO zyprexa and Benadryl IV overnight 05/04-05/05 but appears agitation exacerbated by roommates agitation and improved since move to new room Repeat EKG w/ QTC improved from 517ms to 470ms and will monitor Zyprexa 2.5mg PO AM , had been getting zyprexa 5mg @1900 however increased somnolence and was REDUCED to 2.5mg HS last evening (05/06) and provided 500cc NSS for mild dehydration --> patient MUCH more awake/alert, up to the chair today and will continue such Zyprexa 2.5mg BID, doxepin, melatonin HS (additional prn dose available if needed) No urinary retention, bladder scan as needed. UA did not appear infected. +BM Notable below hx cardiomyopathy/CHF and hx parox afib/mild PT/OT consulted and plans for placement, CM following #Cardiomyopathy/mild Aortic stenosis/ "CHF" Discussed w/ family 05/06 and reported hx "CHF" and need for possible pacemaker/defibrillator Reviewed PCP notes and ECHO January 2024--> EF 20-25%, mild . High risk for arrhythmia/sudden cardiac but declined life vest in past as well Home meds continued with metoprolol 12.5mg daily, ASA 81mg, statin. Appeared DRY 05/06, 500cc NSS provided and Cr improved from 1.4--> 1.2. Slight elevation in BNP but slightly dry but improved PO intake and would avoid diuretics Not on MARLEEN/ARB but consideration low dose entresto and holding amlodipine in AM pending exam/further discussion but did discuss w/ POA and reports had adjustment to his medications with switching PCP this past year Monitor volume status, weights (noted to loss 7-8lb in past 6 months, ?playing a role) #HUGH Cr 1.4, baseline ~1.2. UA not appearing infected but appeared DRY 05/06 and IVF provided. No urinary retention and bladder scan actually <100cc on 05/06 and improved PO intake and Cr to 1.2 today and encouraged continued PO intake. renal dose meds/avoid nephrotoxins as able, BMP in AM #Elevated troponin Mild, denied chest pain. EKG without ST elevation. Trop peaked at 62 and down trending, mag replete. CK WNL. Suspect demand ischemia in setting of agitation/aggression but also prbably underlying cardiac disease with cardiomyopathy/reduced EF as above of unknown duration. Consideration for entreso as above Chronic stable issues: Hypertension- Continues on amlodipine, metoprolol succinate however will place AM amlodipine on HOLD for now as likely no additonal benefit and consider low dose entresto if BP allow Hyperlipidemia-continue statin DVT ppx: lovenox SQ while inpatient Dispo: continued inpatient stay for placement, CM following Continue reduced seroquel, amlodipine placed on hold for AM (daughter bringing old med list) and consideration for entresto for low EF Updated family at bedside 05/06, daughter Yelitza (POA) on 05/06 and this morning. Admission and Anticipated Discharge Date Admission Date: May 02, 2024 Supervising Physician Co-Signing Physician Notes The patient was not seen by me. The chart was reviewed. Case discussed with JAMIE Sam. Agree with assessment and plan Subjective Siting up in the recliner chair today, appears much more alert to self, more talkative, cooperative. Ate milk, applesauce, boost this morning, some bites of breakfast. No pain, fixated on his watch. Discussed plan for rehab, ok to update . He reports she will be happy with a good report. Updated family via phone, will bring old med list, consideration for entresto tomorrow for low EF pending Bps and would plan to hold his amlodipine. Physical Exam 2 Physical Exam: General: 88yo male sitting up in recliner chair, NAD, appears much more awake/alert today, able to answer more questions, remains w/ dementia/confusion at times HEENT: mm improved, lesion to L cheek/stable Resp: even/unlabored, no wheezing/rales, on room air CV: Regular, +systolic murmur, no pitting edema/calf tenderness GI: +BS, soft/NT no jenkins MSK/Neuro: able to follow commands as asked, no focal deficit Psych: alert to person, not place/time but remains cooperative Results & Data Results & Data Vital Signs (Past 12 Hours) Vital Signs Temp Pulse Resp BP Pulse Ox O2 Del Method 05/07/24 07:47 Room Air 05/07/24 07:29 36.6 C 73 16 115/78 94 Room Air 05/07/24 05:30 93 H 16 154/74 H 93 Room Air 05/06/24 20:59 36.7 C 98 H 20 142/59 H 96 Room Air 05/06/24 20:15 Room Air Laboratory Results 05/06/24 09:10 05/06/24 09:10 PG Care Time/CCT Total # of Minutes Spent Total Time Spent with Patient: Total time spent is greater than 50% in coordination of care (as documented) at patient's floor/unit and/or counseling patient: Coding Level of Care Code 15702 SUB INP/OBS CARE 3/50MIN Diagnoses Aggressive behavior R46.89 Moderate dementia with other behavioral disturbance, unspecified dementia type F03.B18 Dementia behavioral or psychological symptom: with other behavioral disturbance Dementia severity: moderate Dementia type: unspecified type HUGH (acute kidney injury) N17.9 Elevated troponin I level R79.89 Hearing difficulty of both ears H91.93 (2) Dementia Dementia behavioral or psychological symptom: with other behavioral disturbance Dementia severity: moderate Dementia type: unspecified type Qualified Code(s): F03.B18 - Unspecified dementia, moderate, with other behavioral disturbance
[2024-05-07 08:46] LABS: Hematocrit (blood only) 40.5 % (42.0-52.0); Hemoglobin 13.2 g/dl (14.0-18.0); Mean Corpuscular Hemoglobin 28.6 pg (25.0-34.0); Mean Corpuscular Hgb Conc 32.6 g/dL (32.0-36.0); Mean Corpuscular Volume 87.9 fL (80.0-100.0); Mean Platelet Volume 10.1 fL (9.4-12.4); Platelet Count 231 K/uL (130-400); RDW Coefficient of Variation 14.2 % (11.5-14.5); RDW Standard Deviation 45.2 fL (36.4-46.3); Red Blood Count 4.61 M/uL (4.70-6.10); White Blood Count 7.87 K/ul (4.8-10.8)
[2024-05-07 08:49] LABS: BUN Creatinine Ratio 24.8 (10-20); Magnesium 2.1 mg/dl (1.7-2.4); Potassium 3.9 mmol/L (3.5-5.1)
--- NOTE | 2024-05-07 11:39 | Electrocardiogram Report ---
Test Reason : Blood Pressure : */* mmHG Vent. Rate : 115 BPM Atrial Rate : 115 BPM P-R Int : 224 ms QRS Dur : 130 ms QT Int : 340 ms P-R-T Axes : 20 -41 137 degrees QTcB Int : 470 ms Sinus tachycardia with 1st degree A-V block with Premature atrial complexes Left axis deviation Left bundle branch block Abnormal ECG When compared with ECG of 03-May-2024 11:21, Premature ventricular complexes are no longer Present Confirmed by Ty Lazo ([id number]) on 05/07/2024 11:38:58 AM Referred By: REFERRED SELF Confirmed By: Ty Lazo
[2024-05-07] MEDS: OLANZAPINE 2.5 MG TAB PO SCH (17:10)
[2024-05-07] MEDS: OLANZapine 10 MG/2.1 ML SDV IM ONE (23:30)
[2024-05-07] MEDS: OLANZapine 10 MG/2.1 ML SDV IM STA (23:42)
--- NOTE | 2024-05-08 07:26 | Hospitalist Progress Note ---
Date of Service May 08, 2024 Assessment & Plan (1) Aggressive behavior: (2) Dementia: (3) HUGH (acute kidney injury): (4) Elevated troponin I level: (5) Hearing difficulty of both ears: Plan The patient is a 88-year-old male resident of [facility], who presents due to history of sundowning/agitation, and reportedly was attempting to hit his with a cane. Has seen PCP for this, who attempted Ativan initially without improvement, then trialed on Zyprexa 2.5 mg orally. Patient likely not safe in his current living environment and admitted for possible transition to the SNF portion of [facility]. No acute metabolic/infectious cause of worsening behavior (CBC/BMP/UA/TSH/Head CT/CXR) #Dementia with aggressive behavior - symptoms do not appear to be associated with an infection/metabolic component. UA does not appear infected Required PO zyprexa and Benadryl IV overnight 05/04-05/05 but appears agitation exacerbated by roommates agitation and improved since move to new room Repeat EKG w/ QTC improved from 517ms to 470ms 05/06 Increased sedation/sleeping a lot on 05/06 and reduced Zyprexa evening dose to 2.5mg and given 500cc NSS for mild dehydration and was MUCH IMPROVED and up to the chair/eating and walking with staff on 05/07 however became more agitated in the evening and for risk for fall was moved back to double room with agitated patient and required IM ZYPREXA 2.5mg overnight into this morning along with restraints. Notable also lorazepam 0.5mg x 2 and reduced further but would avoid Discussed with and will hopefully remove restraints today but will plan for lower dose Zyprexa 2.5mg TID (timing AM, 3pm and 9pm) and can adjust timing as needed. Restraints removed this afternoon. EKG obtained, reviewed by supervising provider per request given QTC 550ms (1gm IV mag given) but rec to continue zyprexa/possible increase. Cautious w/ his cardiomyopathy/low EF PT/OT consulted and placement planned. CM to update on status of placement #Cardiomyopathy/mild Aortic stenosis/ "CHF"/afib Discussed w/ family 05/06 and reported hx "CHF" and need for possible pacemaker/defibrillator -->Reviewed PCP notes and ECHO January 2024 w/ EF 20- 25%, mild . High risk for arrhythmia/sudden cardiac but declined life vest in past as well Home meds continued with metoprolol 12.5mg daily, ASA 81mg, statin 500cc NSS on 05/06 and improved Cr and mentation/PO intake however again agitated/IM medications overnight and repeat gentle IVF as did NOT appear volume overloaded Amlodipine placed on hold as likely no great benefit and if mentation improved/stable on zyprexa as outlined can consider starting low dose entresto in AM 05/09 to see if improvement in EF/cardiomyopathy however do not have known cause and duration unknown but denied CP at this time. #HUGH Cr 1.4, baseline ~1.2. UA not appearing infected but appeared DRY 05/06 and IVF provided w/ resolution to 1.2. Bladder scan without retention but monitoring with additional IM dose. Cr 1.06 and stable but gentle IVF for mild dehydration on exam BMP in AM #Elevated troponin Mild, denied chest pain. EKG without ST elevation. Trop peaked at 62 and trended down on repeat. CK not elevated - Suspected demand ischemia in setting of agitation/aggression but also probably underlying cardiac disease with cardiomyopathy/reduced EF as above of unknown duration. Consideration for Entresto as above Chronic stable issues: Hypertension- Continues metoprolol succinate however placed AM amlodipine on HOLD and BP 158/73 and monitoring in AM for entresto Hyperlipidemia-continue statin DVT ppx: lovenox SQ while inpatient continued Dispo: continued inpatient stay for placement, Zyprexa changed to TID dosing at lower dose. Lowered ativan but would avoid as able. Restraints removed but can resume if needed for safety/agitation Daughter Yelitza GUEVARA updated 05/07, at bedside today and can touch base w/ Yelitza in AM tomorrow pending course CM to update on progress with placement Admission and Anticipated Discharge Date Admission Date: May 02, 2024 Supervising Physician Co-Signing Physician Notes The patient was not seen by me. The chart was reviewed. Case discussed with JAMIE Sam. Agree with assessment and plan Subjective Kicking/biting last night, did require IM Zyprexa and restraints. Currently sleeping in bed, in room/updated. She reports she spoke with him on phone last night and was talking up storm like his usual self. Discussed unfortunately got increased agitation and utillized IM medications for safety with restraints but will hopefully able to remove if remains calm and will utilize the lower zyprexa but 2.5mg three times daily for dose in mid afternoon and evening when owning appears the worse. Gentle IVF provided given current status. Pref private room if becomes available but for safety at present location. Roommate does tend to yell/worsen patients agitation. Amlodipine on hold for now but discussed entresto but given current status avoiding for now. Ongoing placement needs, wanting close to [place] if possible. Will see if CM available to talk with her today. Physical Exam 2 Physical Exam: General: 88yo male laying in bed, restraints to wrists in place/sleeping this morning, in room at bedside HEENT: mm again dry today from medication overnight Resp: even/unlabored, no wheezing/rales, on room air CV: Regular/PVCs, +systolic murmur, no pitting edema/calf tenderness GI: +BS, soft/NT no jenkins MSK/Neuro: not able to follow commands with current cognitive status/medication and restraints. awakes but falls back asleep quickly Psych: alert to person at times, not place/time Results & Data Results & Data Vital Signs (Past 12 Hours) Vital Signs Temp Pulse Resp BP Pulse Ox O2 Del Method 05/07/24 21:11 36.8 C 108 H 16 128/72 94 Room Air Laboratory Results 05/07/24 07:21 05/08/24 07:31 PG Care Time/CCT Total # of Minutes Spent Total Time Spent with Patient: Total time spent is greater than 50% in coordination of care (as documented) at patient's floor/unit and/or counseling patient: Coding Level of Care Code 84969 SUB INP/OBS CARE 3/50MIN Diagnoses Aggressive behavior R46.89 Moderate dementia with other behavioral disturbance, unspecified dementia type F03.B18 Dementia behavioral or psychological symptom: with other behavioral disturbance Dementia severity: moderate Dementia type: unspecified type HUGH (acute kidney injury) N17.9 Elevated troponin I level R79.89 Hearing difficulty of both ears H91.93 (2) Dementia Dementia behavioral or psychological symptom: with other behavioral disturbance Dementia severity: moderate Dementia type: unspecified type Qualified Code(s): F03.B18 - Unspecified dementia, moderate, with other behavioral disturbance
[2024-05-08] MEDS: MAGNESIUM SULFATE / D5W 1 GM/100 ML BAG IV ONE (08:42)
[2024-05-08 08:52] LABS: BUN Creatinine Ratio 22.6 (10-20); Calcium 9.1 mg/dl (8.6-10.3); Creatinine Clr Calc Pharmacy 41.8 ml/min; Potassium 3.6 mmol/L (3.5-5.1)
[2024-05-08] MEDS: D5W AND LACTATED RINGERS 1,000 ML IV SCH (12:02)
--- NOTE | 2024-05-08 14:35 | Electrocardiogram Report ---
Test Reason : Blood Pressure : */* mmHG Vent. Rate : 111 BPM Atrial Rate : 127 BPM P-R Int : 156 ms QRS Dur : 136 ms QT Int : 406 ms P-R-T Axes : 73 -42 147 degrees QTcB Int : 552 ms Sinus tachycardia with Premature atrial complexes Left axis deviation Left bundle branch block T wave abnormality, consider anterolateral ischemia Abnormal ECG When compared with ECG of 06-May-2024 09:37, [place] interval has decreased Confirmed by Ty Lazo ([id number]) on 05/08/2024 2:35:01 PM Referred By: REFERRED SELF Confirmed By: Ty Lazo
[2024-05-08] MEDS: OLANZAPINE 2.5 MG TAB PO SCH (15:41)
[2024-05-08] MEDS: LORazepam 0.5 MG TAB PO PRN (21:15)
--- NOTE | 2024-05-09 09:19 | Hospitalist Progress Note ---
Date of Service May 09, 2024 Assessment & Plan (1) Aggressive behavior: (2) Dementia: (3) HUGH (acute kidney injury): (4) Elevated troponin I level: (5) Hearing difficulty of both ears: Plan The patient is a 88-year-old male resident of [facility], who presents due to history of sundowning/agitation, and reportedly was attempting to hit his with a cane. Has seen PCP for this, who attempted Ativan initially without improvement, then trialed on Zyprexa 2.5 mg orally. Patient likely not safe in his current living environment and admitted for possible transition to the SNF portion of [facility]. No acute metabolic/infectious cause of worsening behavior (CBC/BMP/UA/TSH/Head CT/CXR) #Dementia with aggressive behavior - symptoms do not appear to be associated with an infection/metabolic component. UA does not appear infected Zyprexa/Benadryl IV 05/04 for agitation but suspected from agitation from roommate which was MUCH improved once in single room but unfortunately back in same room with same patient and suspect feeding off each other Zyprexa given late this morning and asked to provide afternoon dose around 430 for sundowning/hallucination and agitation and will continue the 2.5mg dose TID. Repeat EKG prior w/ qtc 552ms and ok per supervising provider to continue Gentle IVF x 500cc, PO intake encouraged (called kitchen for sandwich) 1: 1 for safety Did not need any IM/IV meds or restraints overnight but hopefully able to get to private room given concerns for agitation by roommate Ongoing placement for safety/aggression from dementia/alzheimers #Cardiomyopathy/mild Aortic stenosis/ "CHF"/afib See prior notes/discussion w/ family. Did not want life vest/defibrillator for EF 20-25% w/ mild in January, is at high risk for sudden and is DNR Remains on metoprolol for afib/HTN/cardiomyopathy and rates appear stable/no afib. EKG w/o afib but no anticoagulation and CT neg for acute CVA but did note mild cerebral atrophy and white matter changes c/w small vessel disease, increased and remains on ASA daily and statin Amlodipine held w/ plans for entresto but BP elevated (suspect 2nd to agitation) and resumed/500cc NSS and consideration to start pending mentation in AM. Renal function stable, dry on exam and doesn't appear volume overloaded #HUGH Cr 1.4, baseline ~1.2. UA didn't appear infected, no retention on bladder scan IVF provided, cautious w/ EF above and Cr remains stable 1.0. Consideration for entresto as outlined Monitor #Elevated troponin Mild, denied chest pain. EKG without ST elevation. Trop peaked at 62 and trended down on repeat. CK not elevated - Suspected demand ischemia in setting of agitation/aggression but also probably underlying cardiac disease with cardiomyopathy/reduced EF as above of unknown duration. Consideration for Entresto as above Chronic stable issues: Hypertension- continues on metoprolol, consider entresto for above. amlodipine continued for now DVT ppx: lovenox SQ Dispo: continued inpatient stay for placement,CM following zyprexa 2.5mg TID, 1:1 for safety Updated family 05/08, will call in AM (spoke w/ , prior POA daughter Yelitza) Admission and Anticipated Discharge Date Admission Date: May 02, 2024 Supervising Physician Co-Signing Physician Notes The patient was not seen by me. The chart was reviewed. Case discussed with JAMIE Sam. Agree with assessment and plan Subjective Eval this afternoon, 1:1 in room. Agitation worsened from roommate, hopefully able to separate Was sleepy this morning but took pills, nursing held off the AM zyprexa due to such but increased agitation and given a little late Around 430pm, 1:1 in room, patient insistent aide in room with gun, hallucinations. Showed did NOT have such, curtain pulled. Again, preference on single room. Patient denies CP/SOB, good appetite reported/would like meat sandwich, turkey sandwich. Call to kitchen to provide and asked nursing to provide his afternoon dose of zyprexa and will continue TID for now. Physical Exam 2 Physical Exam: General: 88yo male laying in bed,+hallucinations, thinks aide in room with gun, mild agitation/RN to provide zyprexa Head atraumatic, normocephalic, poor dentition, mm slightly DRY Resp: even/unlabored, slightly diminished in the bases but no wheezing/rales, on room air CV: : Regular/PVCs, +systolic murmur, no pitting edema/calf tenderness GI: +BS, soft/NT no jenkins MSK/Neuro: not able to follow commands at times, hallucinating, unable to direct at times but was able to keep calm until nursing able to provide medication Psych: alert to person, thinks at friends house, not oriented to place/time Results & Data Results & Data Vital Signs (Past 12 Hours) Vital Signs Temp Pulse Resp BP Pulse Ox O2 Del Method 05/09/24 07:14 87 18 160/73 H 96 Room Air 05/08/24 21:22 36.5 C 79 12 133/94 91 Room Air Laboratory Results 05/07/24 07:21 05/09/24 10:05 PG Care Time/CCT Total # of Minutes Spent Total Time Spent with Patient: Total time spent is greater than 50% in coordination of care (as documented) at patient's floor/unit and/or counseling patient: Coding Level of Care Code 61334 SUB INP/OBS CARE 3/50MIN Diagnoses Aggressive behavior R46.89 Moderate dementia with other behavioral disturbance, unspecified dementia type F03.B18 Dementia behavioral or psychological symptom: with other behavioral disturbance Dementia severity: moderate Dementia type: unspecified type HUGH (acute kidney injury) N17.9 Elevated troponin I level R79.89 Hearing difficulty of both ears H91.93 (2) Dementia Dementia behavioral or psychological symptom: with other behavioral disturbance Dementia severity: moderate Dementia type: unspecified type Qualified Code(s): F03.B18 - Unspecified dementia, moderate, with other behavioral disturbance
[2024-05-09 11:13] LABS: BUN Creatinine Ratio 15.8 (10-20); Calcium 8.8 mg/dl (8.6-10.3); Creatinine Clr Calc Pharmacy 42.1 ml/min; Potassium 3.7 mmol/L (3.5-5.1)
[2024-05-09] MEDS: SODIUM CHLORIDE 0.9% 500 ML IV SCH (17:43)
[2024-05-09] MEDS: ACETAMINOPHEN 1,000 MG/100 ML VIAL IV PRN (22:01)
--- NOTE | 2024-05-10 08:39 | Hospitalist Progress Note ---
Date of Service May 10, 2024 Assessment & Plan (1) Aggressive behavior: (2) Dementia: (3) HUGH (acute kidney injury): (4) Elevated troponin I level: (5) Hearing difficulty of both ears: Plan The patient is a 88-year-old male resident of [facility], who presents due to history of sundowning/agitation, and reportedly was attempting to hit his with a cane. Has seen PCP for this, who attempted Ativan initially without improvement, then trialed on Zyprexa 2.5 mg orally. Patient likely not safe in his current living environment and admitted for possible transition to the SNF portion of [facility]. No acute metabolic/infectious cause of worsening behavior (CBC/BMP/UA/TSH/Head CT/CXR) #Dementia with aggressive behavior - symptoms do not appear to be associated with an infection/metabolic component. One of 13 children per daughter ISMAEL Torre, 5 w/ alzheimers if lived long enough and her father is only living remaining child and did have increased isolation several years ago when this all started to help mask memory issues UA not infected, zyprexa/benadryl 05/04 for agitation but suspected agitation increased from roommate and MUCH improved 05/07 when and reduced zyprexa to 2.5mg BID to prevent sedation (was getting 2.5mg AM/5mg PM) Unfortunately moved back to same room and was given Zyprexa and restrained 05/08 AM which were removed and discussed changing zyprexa to 2.5mg TID which was done with good results/kept calm HOWEVER was held AM by nursing 05/09 despite ability to take and was sleepy but then agitated/hallucinating and thinking aide with gun 05/09 and provided and did get small dose ativan 0.25mg overnight (reduced prn dosing/would avoid) and suspect delirium on top of patient w/ dementia contributing w/ room changes/not near window and hopefully able to get to private rooms when staffing/beds allow. Did give 500cc NSS 05/09 and improved PO intake today Zyprexa 2.5mg PO at scheduled times TID (ordered for 1500 afternoon dose to prevent issues when sundowning starting to occur and additional dose in evening to keep calm overnight) If able to isolate rooms do suspect could change to BID dosing and additional prn dosing if needed but will continue current course Discussed alternative medicatoins w/ family/updated 05/10 at length but given effectiveness will continue. All w/ risks but weighing benefits w/ his low EF/cardiomopathy but again confirmed DNR/no heroic measures and actually they do not want to trial start entresto for fear of improvement in EF and prolonging patient's life w/ current dementia and suffering of which has been very difficult on Hopeful placement if able to keep calm on oral medications without need for additional IM but has not needed since early AM hours 05/08 #Cardiomyopathy/mild Aortic stenosis/ "CHF"/afib/HTN-See prior notes, was consideration start entresto but family has decided against this and prefers to continue prior meds Not on AC w/ hx afib and cannot r/o CVA but CT on admit w/o acute but did note mild cerebral atrophy and white matter changes c/w small vessel disease, increased and remains on ASA daily and statin Remains on metoprolol, amlodipine resumed for HTN and BP stable 149/79. #HUGH-Cr 1.4, baseline ~1.2. UA not infected/monitoring bladder scan. IVF hydration despite low EF looked dry and Cr stable 1.0 and encouraged PO intake #Elevated troponin -Mild, denied chest pain. EKG without ST elevation. Trop peaked at 62 and trended down on repeat. 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 Delirium prevention strategies/freqent orientation. CM following and hopeful placement if remaining calm as he is today Family updated daily w/ excpetion 05/09 but did update at bedside 05/08 however POA daughter Yelitza would like updates DAILY please. Number in chart Admission and Anticipated Discharge Date Admission Date: May 02, 2024 Supervising Physician Co-Signing Physician Notes The patient was not seen by me. The chart was reviewed. Case discussed with JAMIE Sam. Agree with assessment and plan Subjective Eval this morning, took AM meds. Pleasant/talkative, improved PO intake. Will continue TID scheduled dosing, rec nursing not avoid scheduled dosing. No CP, no SOB. Updated daughter via phone, preference to hold off start Entresto. Physical Exam 2 Physical Exam: General: 88yo male resting in bed, sitter in room but appearing calm/cooperative, no further significant hallucinations Head atraumatic, normocephalic, mm improved, trachea midline Resp; even/unlabored, no tachypnea/distress, on room air CV: regular rate/rhythm, +systolic murmur, no pitting edema GI: BS throuhgout, soft/NT no jenkins MSK/Neuro: no slurred speech/facial droop, able to follow commands today as asked, no further hallucinations/appears much more calm Psych: alert to person, not place/time but is wondering how long we are going to keep him/when he is going to get to leave, support provided Results & Data Results & Data Vital Signs (Past 12 Hours) Vital Signs Temp Pulse Resp BP Pulse Ox O2 Del Method 05/10/24 08:07 36.2 C L 82 16 171/74 H 96 Room Air Laboratory Results 05/07/24 07:21 05/10/24 08:40 PG Care Time/CCT Total # of Minutes Spent Total Time Spent with Patient: Total time spent is greater than 50% in coordination of care (as documented) at patient's floor/unit and/or counseling patient: Coding Level of Care Code 59516 SUB INP/OBS CARE 3/50MIN Diagnoses Aggressive behavior R46.89 Moderate dementia with other behavioral disturbance, unspecified dementia type F03.B18 Dementia behavioral or psychological symptom: with other behavioral disturbance Dementia severity: moderate Dementia type: unspecified type HUGH (acute kidney injury) N17.9 Elevated troponin I level R79.89 Hearing difficulty of both ears H91.93 (2) Dementia Dementia behavioral or psychological symptom: with other behavioral disturbance Dementia severity: moderate Dementia type: unspecified type Qualified Code(s): F03.B18 - Unspecified dementia, moderate, with other behavioral disturbance
[2024-05-10 09:20] LABS: BUN Creatinine Ratio 13.1 (10-20); Calcium 8.5 mg/dl (8.6-10.3); Creatinine Clr Calc Pharmacy 45.5 ml/min; Magnesium 1.9 mg/dl (1.7-2.4); Potassium 3.6 mmol/L (3.5-5.1)
[2024-05-10] MEDS: OLANZAPINE 2.5 MG TAB PO PRN (20:04)
--- NOTE | 2024-05-11 08:37 | Hospitalist Progress Note ---
Date of Service May 11, 2024 Assessment & Plan (1) Aggressive behavior: (2) Dementia: (3) HUGH (acute kidney injury): (4) Elevated troponin I level: (5) Hearing difficulty of both ears: Plan The patient is a 88-year-old male resident of [facility], who presents due to history of sundowning/agitation, and reportedly was attempting to hit his with a cane. Has seen PCP for this, who attempted Ativan initially without improvement, then trialed on Zyprexa 2.5 mg orally. Patient likely not safe in his current living environment and admitted for possible transition to the SNF portion of [facility]. No acute metabolic/infectious cause of worsening behavior (CBC/BMP/UA/TSH/Head CT/CXR) #Dementia with aggressive behavior - symptoms do not appear to be associated with an infection/metabolic component. One of 13 children per daughter ISMAEL Torre, 5 w/ Alzheimer if lived long enough and her father is only living remaining child and did have increased isolation several years ago when this all started to help mask memory issues UA not infected appearing. Was given IM Zyprexa/Benadryl IV on 05/04, IM Zyprexa/restraints overnight 05/07- 05/08 when moved back to same double room w/ same roommate as issues w/ before and do suspect making situation worse and hopefully private room if room/staffing allows Zyprexa change to 2.5mg TID w/ additional 2.5mg prn dose and was provided last evening05/10. Discussed w/ family and supervising provider and have INCREASED ZYPREXA 5mg PO BID, timed for AM/afternoon when sundowning worsens (between 3-5pm) w/ additional 2.5mg prn dose as needed. Hold off ativan (prior reduced as do suspect can make him worse). NO INJECTABLES OR RESTRAINTS SINCE EARLY AM 05/08 Encouraged sleep/wake schedules, frequent orientation 1:1 as needed for safety (is 2:1 at present) Hopeful placement if able to keep calm on oral medications Discussed palliative consulted for goals/further discussion as do suspect progressive dementia/poor PO intake/mental status could also be related progression of disease. Support provided. Daughter Yelitza updated via phone 05/10 and is POA and would like updates daily and did again update in person 05/11 -POA would like call tomorrow for discussion/possible meeting w/ family on Sunday? #Cardiomyopathy/mild Aortic stenosis/ "CHF"/afib/HTN-See prior notes Remains on metoprolol/ASA but did increase metoprolol for AM to ensure rates remaining stable w/o elevations and 500cc NSS for 05/11 for mild dehydration on exam but notable does have JVD but no hypoxia/edema in setting low EF/cardiomyopathy of unclear etiology (see prior notes) but no life vest/defibrillator per patient/family in past and is DNR. Cannot r/o underlying CVA w/ MRI or that mentation issues 2nd to underlying cause for his cardiomyopathy, but did appear DRY (?2nd to poor PO intake from progressive disease/meds) CT neg for acute CVA (notes does note mild cerebral atrophy and white matter changes c/w small vessel disease) and remains on ASA daily. Hx afib and did not want AC, agree w/ overall status. #HUGH- resolved - Cr 1.4 w/ baseline 1.2 and did give IVF despite cardiomyopathy/low EF as appeared dry and normalized 1.0 and remained such OFF fluids but again a little dry today/monitor in AM #Elevated troponin - mild, denied chest pain. EKG without ST elevation. Trop peaked at 62 and trended down on repeat. 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 Delirium prevention, frequent orientation. Private room if available. Palliative consulted for family meeting. CM following and hopeful placement if remains calm w/ adjustments as above but has not needed any IM injectables or restraints since early AM 05/08 UPDATE DAUGHTER YELITZA DAILY PLEASE Admission and Anticipated Discharge Date Admission Date: May 02, 2024 Supervising Physician Co-Signing Physician Notes The patient was not seen by me. The chart was reviewed. Case discussed with JAMIE Sam. Agree with assessment and plan Subjective Eval this morning, zyprexa slightly late and sleeping but awakens to name. Family updated at bedside, IVF for hydration. Discussed status, palliative consult for goals/discussion of progressive dementia. Discussion w supervising provider to be undertaken regarding adjustment to meds, private room rec if becomes available as discussed prior. HR elevation in setting dehydration and prn fluid as needed for now. Will inc metoprolol. Does have some JVD but appears DRY on exam. Physical Exam Physical Exam: General: 88yo male resting in bed, sitter in room but appearing calm/cooperative, no further significant hallucinations Head atraumatic, normocephalic, mm improved, trachea midline Resp; even/unlabored, no tachypnea/distress, on room air CV: regular rate/rhythm, +systolic murmur, no pitting edema GI: BS throuhgout, soft/NT no jenkins MSK/Neuro: no slurred speech/facial droop, able to follow commands today as asked, no further hallucinations/appears much more calm Psych: alert to person, not place/time but is wondering how long we are going to keep him/when he is going to get to leave, support provided Results & Data Results & Data Vital Signs (Past 12 Hours) Vital Signs O2 Del Method 05/10/24 22:10 Room Air PG Care Time/CCT Total # of Minutes Spent Total Time Spent with Patient: Total time spent is greater than 50% in coordination of care (as documented) at patient's floor/unit and/or counseling patient: Coding Level of Care Code 92272 SUB INP/OBS CARE 3/50MIN Diagnoses Aggressive behavior R46.89 Moderate dementia with other behavioral disturbance, unspecified dementia type F03.B18 Dementia behavioral or psychological symptom: with other behavioral disturbance Dementia severity: moderate Dementia type: unspecified type HUGH (acute kidney injury) N17.9 Elevated troponin I level R79.89 Hearing difficulty of both ears H91.93 (2) Dementia Dementia behavioral or psychological symptom: with other behavioral disturbance Dementia severity: moderate Dementia type: unspecified type Qualified Code(s): F03.B18 - Unspecified dementia, moderate, with other behavioral disturbance
[2024-05-11] MEDS: SODIUM CHLORIDE 0.9% 500 ML IV SCH (11:10)
[2024-05-11] MEDS: OLANZapine 5 MG TABLET PO SCH (15:50)
--- NOTE | 2024-05-12 07:42 | Hospitalist Progress Note ---
Date of Service May 12, 2024 Assessment & Plan (1) Aggressive behavior: (2) Dementia: (3) HUGH (acute kidney injury): (4) Elevated troponin I level: (5) Hearing difficulty of both ears: Plan The patient is a 88-year-old male resident of [facility], who presents due to history of sundowning/agitation, and reportedly was attempting to hit his with a cane. Has seen PCP for this, who attempted Ativan initially without improvement, then trialed on Zyprexa 2.5 mg orally. Patient likely not safe in his current living environment and admitted for possible transition to the SNF portion of [facility]. No acute metabolic/infectious cause of worsening behavior (CBC/BMP/UA/TSH/Head CT/CXR) #Dementia with aggressive behavior See prior notes, symptoms do not appear to be associated with an infectious component but do suspect could be related to progressive dementia with POA reporting 5/ children with such if lived long enough and increased seclusion over the years with known memory issues. Started Zyprexa ~3 wks ago for agression at home. Does also have cardiomyopathy with low EF unknown etiology but family NOT wanting life vest/defibrillator or further intervention but did increase metoprolol to 25mg for BP/HR control Prior adjustments to medications and room changes w/ feeding off each other and eventually changed Zyprexa to 5mg BID (scheduled at 900, 1530) HOLD further lorazepam and suspect makes things worse and prefer additional 2.5mg zyprexa daily prn as needed (used last evening with good results) Continue Melatonin HS, maintain day/sleep schedules No further restraints or IM medications since AM 05/08 and dc 1:1 and making q15min checks today as calm/cooperative. Updated POA daughter Yelitza of condition, happy with report. Palliative consulted for support/progressive dementia and discussion but remains DNR/again no escalation of treatment and working on placement to facility closer to [place] to be close to his #Cardiomyopathy/mild Aortic stenosis/ "CHF"/afib/HTN-See prior notes, did increase metoprolol 25mg and remains on ASA but statin placed on hold given above and no work-up for his underlying etiology and suspect could make worse. Ck not elevated. Notable w/ hx afib increased risk CVA but again increased BB/remains on ASA but no AC (agree w/ progressive condition/wishes by family) and did NOT want to trial entresto. CT head neg acute CVA but did note white matter changes but avoiding MRI for now but cannot r/o (however no obv facial droop on exam/focal weakness). Notable did give IVF periodically for poor PO/dry on exam and NOT overloaded but suspect poor PO intake progressive to above #HUGH- resolved - Cr 1.4 w/ baseline 1.2 and did give IVF despite cardiomyopathy/low EF as appeared dry and normalized 1.0 and remained such OFF fluids but again a little dry 05/11 and 500cc provided. Stable/PO encouraged and improved PO for breakfast today/monitor. #Elevated troponin - mild, denied chest pain. EKG without ST elevation. Trop peaked at 62 and trended down on repeat. 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 Updated daughter yelitza via phone today, POA--> NEEDS UPDATED DAILY PLEASE Palliative consult pending for GOC/support for progressive dementia (family discussion tomorrow ok per POA and reports her mom will be in to visit w/ her dad this morning) Admission and Anticipated Discharge Date Admission Date: May 02, 2024 Subjective Eval this morning, getting cleaned up/changed by nursing. Alert to person, cooperative with care. Zyprexa increased BID last evening, believe reasonable to change to q15min checks as needed/monitor. Decent appetite, ate breakfast. No pain reported. Call to daughter Yelitza for update. Physical Exam Physical Exam: General: 88yo male getting cleaned up by staff, cooperative/pleasant with care and no further aggressin/agitation head atraumatic, normocephalic, mm slightly dry, trachea midline, +JVD resp; even/unlabored, slightly diminished but no overt wheezing/rales and remains on CV CV: regular, occ PAC, +systolic murmur, NO PITTING EDEMA GI: +BS, soft/NT MSK/Neuro: able to follow some commands at times, no further hallucinations/yelling out Psych: alert to person, not place/time but cooperative with exam PG Care Time/CCT Total # of Minutes Spent Total Time Spent with Patient: Total time spent is greater than 50% in coordination of care (as documented) at patient's floor/unit and/or counseling patient: Coding Level of Care Code 78093 SUB INP/OBS CARE 3/50MIN Diagnoses Aggressive behavior R46.89 Moderate dementia with other behavioral disturbance, unspecified dementia type F03.B18 Dementia behavioral or psychological symptom: with other behavioral disturbance Dementia severity: moderate Dementia type: unspecified type HUGH (acute kidney injury) N17.9 Elevated troponin I level R79.89 Hearing difficulty of both ears H91.93 (2) Dementia Dementia behavioral or psychological symptom: with other behavioral disturbance Dementia severity: moderate Dementia type: unspecified type Qualified Code(s): F03.B18 - Unspecified dementia, moderate, with other behavioral disturbance
[2024-05-12 08:04] LABS: Creatinine Clr Calc Pharmacy 37.8 ml/min; Magnesium 1.8 mg/dl (1.7-2.4); Potassium 4.3 mmol/L (3.5-5.1)
[2024-05-12] MEDS: METOPROLOL SUCC 25MG EXT REL TAB PO SCH (09:29)
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
--- NOTE | 2024-05-14 15:56 | Hospitalist Progress Note ---
Date of Service May 14, 2024 Assessment & Plan (1) Aggressive behavior: (2) Dementia: (3) HUGH (acute kidney injury): (4) Elevated troponin I level: (5) Hearing difficulty of both ears: Plan The patient is a 88-year-old male resident of [facility], who presents due to history of sundowning/agitation, and reportedly was attempting to hit his with a cane. Has seen PCP for this, who attempted Ativan initially without improvement, then trialed on Zyprexa 2.5 mg orally. Patient likely not safe in his current living environment and admitted for transition to the SNF. 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 Started Zyprexa ~3 wks ago for agression at home. Continue PO Zyprexa 5mg BID (scheduled at 0900, 1530) Additional 2.5mg zyprexa daily prn as needed Continue Melatonin HS, maintain day/sleep schedules Hold statin and donepezil incase making symptoms worse Palliative consulted for support/progressive dementia and discussion but remains DNR/again no escalation of treatment and working on placement to facility #Cardiomyopathy/mild Aortic stenosis/ "CHF"/afib/HTN hx of afib - continue ASA, family declines anticoagulation Cardiomyopathy - with known low EF, family declined life vest and Entresto. Metoprolol increase to 25mg daily #HUGH- resolved encourage PO fluids #Elevated troponin - mild denied chest pain. EKG without ST elevation. Trop peaked at 62. CK wnl suspected demand ischemia vs underlying cardiac disease with cardiomyopathy/reduced EF DVT proph w/ Lovenox SQ Dispo: continued inpatient stay, continue q 15 minute checks Daughter updated by phone 05/14 - encouraged to bring in items from home to keep pt occupied during the day Admission and Anticipated Discharge Date Admission Date: May 02, 2024 Supervising Physician Co-Signing Physician Notes Attending Attestation - Chart reviewed, care plan d/w JAMIE Campbell. I agree w/ the villaseñor components of her documentation. Cont dispo planning. Gael Conner MD Subjective Patient seen sitting up in the chair - appears much better today. given magazine to try to occupy his time. Review of Systems Review of Systems: All systems reviewed & are unremarkable except as noted in Subjective Physical Exam Physical Exam: General: NAD, vitals as above, sitting up in the chair Pulm: breathing unlabored CV: well perfused extremities: moves all extremities Results & Data Results & Data Vital Signs (Past 12 Hours) Vital Signs Temp Pulse Resp BP Pulse Ox O2 Del Method 05/14/24 15:47 97.2 F L 87 16 136/75 96 Room Air 05/14/24 07:57 97.3 F L 90 16 105/82 95 Room Air PG Care Time/CCT Total # of Minutes Spent Total Time Spent with Patient: Total time spent is greater than 50% in coordination of care (as documented) at patient's floor/unit and/or counseling patient: Coding Level of Care Code 45937 SUB INP/OBS CARE 03/15MIN Diagnoses Aggressive behavior R46.89 Moderate dementia with other behavioral disturbance, unspecified dementia type F03.B18 Dementia behavioral or psychological symptom: with other behavioral disturbance Dementia severity: moderate Dementia type: unspecified type HUGH (acute kidney injury) N17.9 Elevated troponin I level R79.89 Hearing difficulty of both ears H91.93 (2) Dementia Dementia behavioral or psychological symptom: with other behavioral disturbance Dementia severity: moderate Dementia type: unspecified type Qualified Code(s): F03.B18 - Unspecified dementia, moderate, with other behavioral disturbance
--- NOTE | 2024-05-15 13:48 | Hospitalist Progress Note ---
Date of Service May 15, 2024 Assessment & Plan (1) Aggressive behavior: (2) Dementia: (3) HUGH (acute kidney injury): (4) Elevated troponin I level: (5) Hearing difficulty of both ears: Plan The patient is a 88-year-old male resident of [facility], who presents due to history of sundowning/agitation, and reportedly was attempting to hit his with a cane. Has seen PCP for this, who attempted Ativan initially without improvement, then trialed on Zyprexa 2.5 mg orally. Patient likely not safe in his current living environment and admitted for transition to the SNF. 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 Started Zyprexa ~3 wks ago for agression at home. Continue PO Zyprexa 5mg BID (scheduled at 0900, 1530). Continue Melatonin HS, maintain day/sleep schedules Additional 2.5mg zyprexa daily prn as needed Hold statin and donepezil incase making symptoms worse Palliative consulted for support/progressive dementia and discussion but remains DNR/again no escalation of treatment and working on placement to facility #Cardiomyopathy/mild Aortic stenosis/ "CHF"/afib/HTN hx of afib - continue ASA, family declines anticoagulation Cardiomyopathy - with known low EF, family declined life vest and Entresto. Metoprolol increase to 25mg daily #HUGH- resolved encourage PO fluids #Elevated troponin - mild denied chest pain. EKG without ST elevation. Trop peaked at 62. CK wnl suspected demand ischemia vs underlying cardiac disease with cardiomyopathy/reduced EF DVT proph w/ Lovenox SQ Dispo: continued inpatient stay, continue q 15 minute checks Daughter updated by phone 05/14 & 05/15 Admission and Anticipated Discharge Date Admission Date: May 02, 2024 Supervising Physician Co-Signing Physician Notes Attending Attestation - Chart reviewed, care plan d/w JAMIE Campbell. I agree w/ the villaseñor components of her documentation. Gael Conner MD Subjective Patient seen lying in bed after getting washed up. Pleasant and reports being hungry - was appreciative of ice cream I provided to him Review of Systems Review of Systems: All systems reviewed & are unremarkable except as noted in Subjective Physical Exam Physical Exam: General: NAD, vitals as above, sitting up in the chair Pulm: breathing unlabored CV: well perfused extremities: moves all extremities Results & Data Results & Data Vital Signs (Past 12 Hours) Vital Signs Temp Pulse Resp BP Pulse Ox O2 Del Method 05/15/24 08:07 97.7 F 80 16 160/76 H 96 Room Air PG Care Time/CCT Total # of Minutes Spent Total Time Spent with Patient: Total time spent is greater than 50% in coordination of care (as documented) at patient's floor/unit and/or counseling patient: Coding Level of Care Code 73551 SUB INP/OBS CARE 03/15MIN Diagnoses Aggressive behavior R46.89 Moderate dementia with other behavioral disturbance, unspecified dementia type F03.B18 Dementia behavioral or psychological symptom: with other behavioral disturbance Dementia severity: moderate Dementia type: unspecified type HUGH (acute kidney injury) N17.9 Elevated troponin I level R79.89 Hearing difficulty of both ears H91.93 (2) Dementia Dementia behavioral or psychological symptom: with other behavioral disturbance Dementia severity: moderate Dementia type: unspecified type Qualified Code(s): F03.B18 - Unspecified dementia, moderate, with other behavioral disturbance
--- NOTE | 2024-05-16 12:25 | Hospitalist Progress Note ---
Date of Service May 16, 2024 Assessment & Plan (1) Aggressive behavior: (2) Dementia: (3) HUGH (acute kidney injury): (4) Elevated troponin I level: (5) Hearing difficulty of both ears: Plan The patient is a 88-year-old male resident of [facility], who presents due to history of sundowning/agitation, and reportedly was attempting to hit his with a cane. Has seen PCP for this, who attempted Ativan initially without improvement, then trialed on Zyprexa 2.5 mg orally. Patient likely not safe in his current living environment and admitted for transition to the SNF. 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 Started Zyprexa ~3 wks ago for agression at home. Continue PO Zyprexa 5mg BID (scheduled at 0900, 1530). Continue Melatonin HS, maintain day/sleep schedules - behaviors have been well controlled Additional 2.5mg zyprexa daily prn as needed Hold statin and donepezil incase making symptoms worse Palliative consulted for support/progressive dementia and discussion but remains DNR/again no escalation of treatment and working on placement to facility #Cardiomyopathy/mild Aortic stenosis/ "CHF"/afib/HTN hx of afib - continue ASA, family declines anticoagulation Cardiomyopathy - with known low EF, family declined life vest and Entresto. Metoprolol increase to 25mg daily #HUGH- resolved encourage PO fluids #Elevated troponin - mild denied chest pain. EKG without ST elevation. Trop peaked at 62. CK wnl suspected demand ischemia vs underlying cardiac disease with cardiomyopathy/reduced EF DVT proph w/ Lovenox SQ Dispo: continued inpatient stay, continue q 15 minute checks, possible d/c tomorrow Daughter updated by phone 05/14 & 05/15 updated at bedside 05/16 Admission and Anticipated Discharge Date Admission Date: May 02, 2024 Supervising Physician Co-Signing Physician Notes Attending Attestation - Chart reviewed, care plan d/w JAMIE Campbell. I agree w/ the villaseñor components of her documentation. Gael Conner MD Subjective Patient seen lying in bed, present at bedside. Denies complaints, but talks about how cold his hands are and he is very appreciaive of warm blanket that this given to him, Review of Systems Review of Systems: All systems reviewed & are unremarkable except as noted in Subjective Physical Exam Physical Exam: General: NAD, vitals as above, sitting up in the bed, pleasant Pulm: breathing unlabored CV: well perfused extremities: moves all extremities Results & Data Results & Data Vital Signs (Past 12 Hours) Vital Signs Temp Pulse Resp BP Pulse Ox O2 Del Method 05/16/24 09:14 97.3 F L 94 H 18 135/68 94 Room Air PG Care Time/CCT Total # of Minutes Spent Total Time Spent with Patient: Total time spent is greater than 50% in coordination of care (as documented) at patient's floor/unit and/or counseling patient: Coding Level of Care Code 44308 SUB INP/OBS CARE 03/15MIN Diagnoses Aggressive behavior R46.89 Moderate dementia with other behavioral disturbance, unspecified dementia type F03.B18 Dementia behavioral or psychological symptom: with other behavioral disturbance Dementia severity: moderate Dementia type: unspecified type HUGH (acute kidney injury) N17.9 Elevated troponin I level R79.89 Hearing difficulty of both ears H91.93 (2) Dementia Dementia behavioral or psychological symptom: with other behavioral disturbance Dementia severity: moderate Dementia type: unspecified type Qualified Code(s): F03.B18 - Unspecified dementia, moderate, with other behavioral disturbance
[2024-05-17 07:31] VITALS: BP 147/89; PULSE 79; RESP 16; TEMP 97.9; O2SAT 96
--- NOTE | 2024-05-17 10:12 | Discharge Summary ---
Discharge Summary Date of Service May 17, 2024 Principal Dx & Hospital Course #1 = Principal Diagnosis (1) Aggressive behavior: (2) Dementia: (3) HUGH (acute kidney injury): (4) Elevated troponin I level: (5) Hearing difficulty of both ears: Plan #Dementia with aggressive behaviors The patient is a 88-year-old male resident of [facility], who presents due to history of sundowning/agitation, and reportedly was attempting to hit his with a cane. Has seen PCP for this, who attempted Ativan initially without improvement, then trialed on Zyprexa 2.5 mg orally. No acute metabolic/infectious cause of worsening behavior (CBC/BMP/UA/TSH/Head CT/CXR). Behaviors and symptoms related to progressive dementia. Has done well with PO Zyprexa 5mg BID (scheduled at 0900, 1530) and Melatonin HS, with PO 2.5mg zypr exa prn. Statin and donepezil have been discontinued to prevent worsening symptoms. Was seen by Palliative care during his stay. Unsafe to return home with , has been accepted at the [facility]. #Cardiomyopathy/mild Aortic stenosis/ "CHF"/afib/HTN hx of afib - continue ASA, family declines anticoagulation Cardiomyopathy - with known low EF, family declined life vest and Entresto. Metoprolol increase to 25mg daily #HUGH- resolved #Elevated troponin - resolved, peaked at 62. suspected demand ischemia vs underlying cardiac disease with cardiomyopathy/reduced EF Dispo: discharge to [facility] today Daughter updated by phone 05/14 & 05/15 & 05/17 updated at bedside 05/16 Notes For Next Care Provider Medication Changes From Visit metorpolol increased stop statin and donezpil zyprexa as above Admission HPI Per Admitting Provider 88 y/o with baseline dementia and history of sundowning/agitation brought in by EMS after hitting his with a cane. Patient denies CP, SOB, abdominal pain, fevers, or calf pain. Patient hard of hearing, which limits the usefulness of the interview. Patient reports that someone took his breasts earlier today and he is looking for them. He also asked some inappropriate questions regarding breasts during the interview. CT Head without acute process. Labs largely unremarkable - slightly elevated Cr and Trop. Given 500 mL fluid bolus. Per chart review, family has been considering transitioning to a shelter care facility and Paulie has become more difficult to take care of with his agit ation/sundowning. Discharge Exam General: NAD, vitals as above, lying in bed, sleeping Pulm: breathing unlabored CV: well perfused extremities: moves all extremities Discharge Plan Discharge Items Patient Disposition: Transfer Half-Way Fac Reason For Visit: CONFUSION Discharge Diagnosis: Dementia Activity: Resume your previous activity Bathing: No limitations Driving/Machine Use: NO driving Non-emergency contact: Primary Care Provider Call non-emergency contact if: you have any medication questions, your symptoms worsen, your pain is not controlled and your temperature is above 101 Follow-up/Referrals: Chris Álvarez DO [Primary Care Provider] - Diet: Regular Diet Texture: Mechanical soft (ground) Addtl Attending Provider Instructions: Mr. Quintanilla You were hospitalized after having aggressive behaviors at home, there were not infectious causes found for these behaviors, and were found to be from your worsening dementia. We have changed your medications around and seen great improvement. Your donezpil and atorvastatin have been stopped as there was concern the side effects of these were making dementia/behaviors worse. Your metoprolol was increased to 25mg daily to help protect your heart. You are being discharged to the [facility] for further care - they will have a list of your medications to continue the same regimen. For Embassay: - Has done well with PO Zyprexa 5mg BID (scheduled at 0900, 1530). Melatonin HS, and zyprexa 2.5 daily PO prn - likes to watch sports, but hard of hearing and vision deficits Pending Studies at Discharge: No Stand-Alone Forms: My [facility] Skilled Items Patient informed of condition?: Yes DNR: Yes Discharge Level of Care: Other Communicable Disease: No Discharge Prognosis: Stable Lines: None Urinary Catheter: No Medications and DC Order Prescriptions: New olanzapine 5 mg Tablet 5 mg PO DAILY@0900,1530 Qty: 60 0RF olanzapine 2.5 mg Tablet 2.5 mg PO DAILY PRN (Reason: behavioral emergency) Qty: 30 0RF Continued (DME) miscellaneous medical supply Misc See Rx Instructions .Route Qty: 1 0RF Rx Instructions: Please provide 1 gait belt zinc PO Centrum Men 8 mg iron- 200 mcg-600 mcg tablet PO aspirin 81 mg tablet,chewable 81 mg PO DAILY Qty: 30 0RF Changed amlodipine 5 mg tablet 5 mg PO DAILY 30 Days Qty: 30 0RF metoprolol succinate 25 mg tablet extended release 24 hr 25 mg PO DAILY Qty: 30 0RF melatonin 5 mg capsule 5 mg PO HS Qty: 30 0RF Discontinued olanzapine 2.5 mg tablet 2.5 mg PO DAILY Qty: 30 2RF donepezil 10 mg tablet 10 mg PO atorvastatin 40 mg tablet 40 mg PO Discharge Orders: Discharge Order (Routine); Ordered 05/17/24 Ordered By: Silvia Campbell Admission Data Admit Date/Time: 05/02/24 15:04 Attending Provider: Gael Conner Admit Provider: Zaida Hernadez Primary Care Provider: Chris Álvarez Other Providers: Rolly Marie; [facility] Stay Data Consultations 05/01/24 21:58 ED Decision to Admit Stat 05/11/24 11:01 Consult Palliative Care Routine Diagnostic Imagining Performed Chest X-Ray 05/01/24 20:38 Exam(s): XR CXR 1 VIEW EXAM: XR Chest, 1 View CLINICAL HISTORY: Reason for exam: Chest pain, nonspecific. TECHNIQUE: Frontal view of the chest. COMPARISON: July 02, 2014 FINDINGS: Lungs: Scattered linear scarring in both lung bases, greater on the right than the left, similar to previous. No new infiltrate identified. Pleural space: Unremarkable. No pneumothorax. Heart: The cardiac silhouette is borderline enlarged. Mediastinum: Unremarkable. Normal mediastinal contour. Bones/joints: Mild degenerative changes of both shoulders. No acute fracture. Vasculature: The aortic arch is mildly calcified. Upper abdomen: Unremarkable as visualized. No pneumoperitoneum under the diaphragm. IMPRESSION: Scattered linear scarring in both lung bases, greater on the right than the left, similar to previous. No new infiltrate identified. Electronically signed by: Simba Palacios MD 05/01/24 21:[address] 05/01/24 20:38 Exam(s): CT HEAD Without Contrast EXAM: CT Head Without Intravenous Contrast CLINICAL HISTORY: Reason for exam: ams. TECHNIQUE: Axial computed tomography images of the head/brain without intravenous contrast. CTDI is 63.46 mGy and DLP is 1100.35 mGy-cm. Automated exposure control was utilized for the study. A dose lowering technique was utilized adhering to the principles of ALARA. COMPARISON: MRI brain from March 03, 2010 FINDINGS: Brain: Mild cerebral atrophy and periventricular white matter low density consistent with chronic small vessel disease and/or senescent changes, increased compared to previous. No acute large vessel infarct or intracranial hemorrhage is seen. Ventricles: Mildly dilated. No mass or hemorrhage. Bones/joints: Unremarkable. No acute fracture. Soft tissues: Unremarkable. Sinuses: Unremarkable as visualized. No acute sinusitis. Mastoid air cells: Unremarkable as visualized. No mastoid effusion. IMPRESSION: Mild cerebral atrophy and periventricular white matter low density consistent with chronic small vessel disease and/or senescent changes, increased compared to previous. No acute large vessel infarct or intracranial hemorrhage is seen. Electronically signed by: Simba Palacios MD 05/01/24 21:35 PM Pending Results Patient Have Any Pending Studies at Discharge: No Discharge Instructions Given to Patient (Per Discharging Provider) Mr. Quintanilla You were hospitalized after having aggressive behaviors at home, there were not infectious causes found for these behaviors, and were found to be from your worsening dementia. We have changed your medications around and seen great improvement. Your donezpil and atorvastatin have been stopped as there was concern the side effects of these were making dementia/behaviors worse. Your metoprolol was increased to 25mg daily to help protect your heart. You are being discharged to the [facility] for further care - they will have a list of your medications to continue the same regimen. For Embassay: - Has done well with PO Zyprexa 5mg BID (scheduled at 0900, 1530). Melatonin HS, and zyprexa 2.5 daily PO prn - likes to watch sports, but hard of hearing and vision deficits Total Time Total Time Spent Total Time Spent (In Minutes): Time spent day of discharge 36 minutes including direct patient care, medication reconciliation, documentation, review of labs and images, and coordination of care. Coding Level of Care Code 68038 INP/OBS DISCH >30 MIN Diagnoses Aggressive behavior R46.89 Moderate dementia with other behavioral disturbance, unspecified dementia type F03.B18 Dementia behavioral or psychological symptom: with other behavioral disturbance Dementia severity: moderate Dementia type: unspecified type HUGH (acute kidney injury) N17.9 Elevated troponin I level R79.89 Hearing difficulty of both ears H91.93
== END 2024-05-17 13:00 | DRG 884 ==
LOC: 3N 20:28 → ED 20:28 → SUATTDRO 22:21 → 3N 05-02 01:09 → SUATTDRO 05-02 15:04 → 3N 05-05 15:00